=== PATIENT | male | born 1975 | race Caucasian/White ===

== ENCOUNTER 2018-05-02 06:15 | Inpatient (IN) ==
--- NOTE | 2018-05-02 07:00 | ED ---
HPI General Chief Complaint: Psychiatric Symptoms Stated Complaint: Lizabeth Leslie Time Seen by Provider: 05/02/18 06:30 Source: patient Mode of arrival: ambulatory Limitations: no limitations History of Present Illness HPI Narrative: 42-year-old white male presents emergency department on a voluntary basis for psychological evaluation. Patient states that he has a history of IV drug abuse, PTSD and depression. He states that his best friend overdosed yesterday. He also states that his family in a [address] car accident in the last few days. He states that he has lost all his family members now. He has nothing to live for. He attempted to kill himself with a drug overdose earlier today. He states that he injected a large amount of heroin and crack cocaine and attempt to kill himself. He states that he passed out and states that he was out for several hours. He reportedly was laying awkwardly on his legs. Since then he has had difficulty ambulating with his legs. He also reports that he has skin infections in his right arm and both legs. He has been spiraling out of control. He quit his job 2 weeks ago because of his substance abuse. The patient admits to depression and suicidal ideation. No homicidal ideation. He states that he does feel sick when he has had "sepsis" in the past. He has had subjective fever and chills, general malaise, nausea, upset stomach, joint pain and generalized weakness. Past medical history: Depression, PTSD, IV drug abuse, multiple drug abscess and cellulitis with sepsis Surgical history: Denies Social history: Positive tobacco, IV drug abuse. Denies alcohol. Related Data Home Medications Medication Instructions Recorded Confirmed No Known Home Medications 05/02/18 05/02/18 Allergies Allergy/AdvReac Type Severity Reaction Status Date / Time No Known Allergies Allergy Uncoded 03/16/13 09:33 Review of Systems ROS: all other systems reviewed are negative [facility] Medical History Medical History Depression (Acute) IVDU (intravenous drug user) (Acute) PTSD (post-traumatic stress disorder) (Acute) Patient denies medical problems (Acute) Surgical History Surgical History No history of previous surgery (Acute) Family History Family History Other Hypertension Social History Social History Substance History: Active Abuse Second Hand Smoke Exposure: Yes Smoking Status: Current every day smoker Tobacco Type: Cigarettes How Often Do You Have a Drink Containing Alcohol: Never Recent Travel in [facility] within the Last 8 Weeks: No Recent Out of Country Travel within the Last 8 Weeks: No Substance Abuse Detail Heroin: Substance Use Status: Active Route Used Substance Abuse: Intravenously Crack/Cocaine: Substance Use Status: Active Route Used Substance Abuse: Intravenously Immunization History Tetanus Immunization: >5 Years Exam Narrative Exam Narrative: GENERAL: Well-nourished, well-developed patient. SKIN: Warm and dry. Patient has multiple track bui. Patient has multiple superficial ulcerations and abscesses to the extremities. He has a what appears to be a superficial abscess to the right forearm. There is also open lesions to both inner lower legs. The left is greater than the right. There is some warmth, erythema and tenderness consistent with abscess and cellulitis. HEAD: Normocephalic and atraumatic. EYES: No scleral icterus. No injection or drainage. ENT: No nasal drainage noted. Mucous membranes pink. Airway patent. NECK: Supple, trachea midline. Moves head freely without obvious discomfort. CARDIOVASCULAR: Regular rate and rhythm without murmurs, gallops, or rubs. RESPIRATORY: Breath sounds equal bilaterally. No accessory muscle use. GASTROINTESTINAL: Abdomen soft, non-tender, nondistended. EXTREMITIES: No cyanosis or edema. Patient has multiple track bui, skin lesions, ulcerations and superficial abscesses from IV drug abuse. BACK: Nontender without obvious deformity. No CVA tenderness. NEURO: Patient is alert and oriented. Patient states that he feels subjectively weak in his lower legs. He is able to ambulate with an antalgic gait which I suspect is from his skin lesions. Normal speech. PSYCH: No delusions. No auditory or visual hallucinations. Course Initial Documented Vital Signs Temperature 97.7 F 05/02/18 06:18 Pulse Rate 94 H 05/02/18 06:18 Respiratory Rate 16 05/02/18 06:18 Blood Pressure 104/63 05/02/18 06:18 Pulse Oximetry 98 05/02/18 06:18 Last Documented Vital Signs Temperature 97.6 F 05/02/18 19:37 Pulse Rate 81 05/02/18 19:37 Respiratory Rate 20 05/02/18 19:37 Blood Pressure 102/69 05/02/18 19:37 Pulse Oximetry 100 05/02/18 19:37 Medical Decision Making MDM Narrative Medical decision making narrative: IV access is obtained. Patient is given clindamycin 900 mg IV. Routine laboratory tests sent for medical clearance. 0700: I received report from Madi Starkey PA-C at change of shift. Patient to be admitted for IV antibiotics for abscesses and cellulitis of his bilateral upper and lower extremities secondary to IV drug abuse. Labs pending. 1038: WBC 16.3, otherwise CBC essentially unremarkable. 1117: Potassium 3.3, otherwise CMP essentially unremarkable. Serum alcohol less than 3. Call placed for patient admission. Medical Screen Exam Complete: Yes Emergency Medical Condition: Yes Differential Diagnosis Differential Diagnosis: MDM: High Differential diagnoses: Schizophrenia, schizoaffective disorder, bipolar, anxiety, depression, adjustment reaction, mood disorder NOS, ODD, depressive disorder NOS, psychosis NOS, substance induced mood disorder, infection, electrolyte abnormality, malingering. Mental health screening discussed with the patient. Psychiatric screen ordered. Lab Data Result diagrams: 05/02/18 09:30 05/02/18 09:30 Lab Results 05/02/18 05/02/18 05/02/18 Range/Units 09:30 09:30 11:16 WBC 16.3 H (4.0-11.0) th/mm3 RBC 4.17 L (4.50-5.90) mil/mm3 Hgb 11.3 L (13.0-17.0) gm/dL Hct 34.4 L (39.0-51.0) % MCV 82.4 (80.0-100.0) fL MCH 27.0 (27.0-34.0) pg MCHC 32.8 (32.0-36.0) % RDW 15.3 (11.6-17.2) % Plt Count 308 (150-450) th/mm3 MPV 7.3 (7.0-11.0) fL Neut % (Auto) 79.9 H (16.0-70.0) % Lymph % (Auto) 11.2 (9.0-44.0) % [place] % (Auto) 7.1 (0.0-8.0) % Eos % (Auto) 1.4 (0.0-4.0) % Baso % (Auto) 0.4 (0.0-2.0) % Neut # (Auto) 13.0 H (1.8-7.7) th/mm3 Lymph # (Auto) 1.8 (1.0-4.8) th/mm3 [place] # (Auto) 1.2 H (0.0-0.9) th/mm3 Eos # (Auto) 0.2 (0.0-0.4) th/mm3 Baso # (Auto) 0.1 (0.0-0.2) th/mm3 WBC Differential . Differential Comment Auto diff final Sodium 138 (136-145) meq/L Potassium 3.3 L (3.5-5.1) meq/L Chloride 101 (98-107) meq/L Carbon Dioxide 26.6 (21.0-32.0) meq/L Anion Gap 10 (5-15) meq/L BUN 9 (7-18) mg/dL Creatinine 0.77 (0.60-1.30) mg/dL Estimated GFR Greater than 89 (>89) mL/min Random Glucose 96 (74-106) mg/dL Calcium 8.3 L (8.5-10.1) mg/dL Magnesium 2.0 (1.5-2.5) mg/dL Total Bilirubin 0.2 (0.2-1.0) mg/dL AST 14 L (15-37) U/L ALT 13 (12-78) U/L Alkaline Phosphatase 85 (45-117) U/L Total Protein 7.0 (6.4-8.2) g/dL Albumin 2.8 L (3.4-5.0) g/dL TSH 1.780 (0.358-3.740) uIU/mL Urine Opiates Screen Pos H (Neg) Ur Barbiturates Screen Neg (Neg) Ur Amphetamines Screen Neg (Neg) U Benzodiazepines Scrn Neg (Neg) Urine Cocaine Screen Pos H (Neg) U Cannabinoids Screen Neg (Neg) Serum Alcohol Less than 3 (0-5) mg/dL Imaging Data Radiologist's impression: Lower Extremity CT 05/02/18 00:00 CONCLUSION: 1. Impressive subcutaneous edema and swelling primarily laterally with a small 7 mm more cystic collection could be a small drainable abscess. It's 18.8 cm below the lateral tibial plateau. No deep muscular collections are seen. Lower Extremity CT 05/02/18 00:00 CONCLUSION: 1. Impressive soft tissue edema in the lower leg with a small collection in the medial subcutaneous tissues measuring 1.2 cm across. Its approximate 16 cm below the joint line. No deep collections within the muscle are identified Discharge Plan Discharge Disposition Patient Disposition: 30 Still Patient Discharge Condition Condition: Stable Physicians Team ED Provider: Melchor Stephens ED Midlevel Provider: Madi Benitez Primary Care Provider: UNKNOWN, Attending Provider: Wil Llamas Discharge Interventions Interventions: ED Discharge Assessment Last Done: 05/02/18 17:38 Vital Signs Last Done: 05/02/18 11:20 Status ED Status: Left Department Discharge Information Discharge Date/Time: 05/02/18 17:10
[2018-05-02] MEDS ORDERED: Clindamycin/Dextrose 900 MG/50 ML IVPB IV.SIG ONE (07:09)
[2018-05-02 10:37] LABS: Baso # (Auto) 0.1 th/mm3 (0.0-0.2); Baso % (Auto) 0.4 % (0.0-2.0); Eos # (Auto) 0.2 th/mm3 (0.0-0.4); Eos % (Auto) 1.4 % (0.0-4.0); Hematocrit 34.4 % (39.0-51.0); Hemoglobin 11.3 gm/dL (13.0-17.0); Lymph # (Auto) 1.8 th/mm3 (1.0-4.8); Lymph % (Auto) 11.2 % (9.0-44.0); Mean Corpuscular HGB Conc 32.8 % (32.0-36.0); Mean Corpuscular Volume 82.4 fL (80.0-100.0); Mean Platelet Volume 7.3 fL (7.0-11.0); Mono # (Auto) 1.2 th/mm3 (0.0-0.9); Mono % (Auto) 7.1 % (0.0-8.0); Neut % (Auto) 79.9 % (16.0-70.0); Platelet Count 308 th/mm3 (150-450); Red Blood Count 4.17 mil/mm3 (4.50-5.90); Red Cell Distribution Width 15.3 % (11.6-17.2); White Blood Count 16.3 th/mm3 (4.0-11.0)
[2018-05-02 10:57] LABS: Albumin 2.8 g/dL (3.4-5.0); Anion Gap 10 meq/L (5-15); Aspartate Aminotransferase 14 U/L (15-37); Blood Urea Nitrogen 9 mg/dL (7-18); Calcium 8.3 mg/dL (8.5-10.1); Carbon Dioxide 26.6 meq/L (21.0-32.0); Chloride 101 meq/L (98-107); Glomerular Filtration Rate Greater Than 89 mL/min (>89); Glucose,Random 96 mg/dL (74-106); Potassium 3.3 meq/L (3.5-5.1); Sodium 138 meq/L (136-145)
[2018-05-02 10:58] LABS: Alanine Aminotransferase 13 U/L (12-78)
[2018-05-02] MEDS ORDERED: Clindamycin 900 mg/NS Premix 900 MG/50 ML PIGGYBACK IV.SIG ONE (11:00)
[2018-05-02 11:08] LABS: Alkaline Phosphatase 85 U/L (45-117)
[2018-05-02] MEDS ORDERED: Acetaminophen 325 MG Tablet PO PRN (11:57)
[2018-05-02] MEDS ORDERED: Sod Chloride 0.9% Inj 1,000 ML IV.SIG SCH (12:00)
[2018-05-02] MEDS: Enoxaparin Inj 40 MG/0.4 ML Syringe SQ SCH (12:34)
[2018-05-02 12:39] LABS: Amphetamine Screen,Urine Neg (Neg); Barbiturate Screen,Urine Neg (Neg); Cannabinoid Screen,Urine Neg (Neg); Cocaine Screen,Urine Pos (Neg)
[2018-05-02 12:46] LABS: Opiate Screen,Urine Pos (Neg)
[2018-05-02] MEDS ORDERED: Vancomycin Inj 1,000 MG in Sodium Chlor 0.9% Inj 250 ML IV.SIG SCH (13:00)
[2018-05-02] MEDS ORDERED: LORazepam 1 MG Tablet PO PRN (13:03)
--- NOTE | 2018-05-02 13:26 | P.HP ---
History of Present Illness Primary Care Physician: UNKNOWN History of Present Illness: 42-year-old male with a history of IV drug use presents to the emergency room voluntarily for evaluation of suicidal ideations. During physical evaluation it is evident that he has fairly extensive cellulitis on all 4 extremities secondary to IV drug use. He is being admitted medically for treatment of these cellulitic limbs with IV antibiotics. From a psychiatric standpoint, he had a of 1 of his children at age 16 that occurred in the last 3 days. Following this the grief was too much to bear and he increased his IV drug use. He started becoming more and more attempted to use a "hot needle" in order to inject a toxin into his veins that would end his life. He realizes that it is not a rational decision and has come to [place] for help. He states he has no intention to harm himself here or to harm staff. For this reason he was not [place] acted and at this point has shown no behavior that would require a sitter. He understands he will likely be going through some level of withdrawal and we discussed a treatment regiment to help take the edge off this process. He has agreed to a psychiatric consult. He denies any nausea vomiting or diarrhea. He denies any abdominal cramps. He denies any chest pain , shortness of breath, orthopnea, dyspnea on exertion. Inpatient Certification: I certify that the inpatient services were ordered in accordance with Medicare regulations governing the order. This includes certification that hospital inpatient services are reasonable and necessary and in the case of services not specified as inpatient-only under 42 CFR 419.22(n), that they are appropriately provided as inpatient services in accordance to with the 2-midnight benchmark under 43 CFR 412.3(e) Estimated Total Length of Stay (Days): 5 Plans for Post Hospital Care: Home Review of Systems All other systems reviewed negative except as stated in HPI PMFSH - History History Provided By: Patient - Medical History Medical History: Medical History (Last Updated 05/02/18 @ 12:02 by Armida Sinha) Depression IVDU (intravenous drug user) PTSD (post-traumatic stress disorder) Patient denies medical problems - Surgical History Surgical History: Surgical History (Last Reviewed 05/02/18 @ 06:57 by JASPER Meraz) No history of previous surgery - Family History Family History: Family History (Last Updated 05/02/18 @ 13:05 by Wil Llamas MD) Other Hypertension - Tobacco History Second Hand Smoke Exposure: Yes Tobacco Use In Past 30 Days: Yes Smoking Status: Current every day smoker Tobacco Type: Cigarettes - Alcohol History How Often Do You Have a Drink Containing Alcohol: Never - Substance Use History Substance History: Active Abuse - Substance Use Type Heroin Status: Active Route Used: Intravenously Crack/Cocaine Status: Active Route Used: Intravenously - Travel History Recent Travel in the [place] Within the Last 8 Weeks: No Recent Travel Out of the Country Within the Last 8 Weeks: No - Immunization History Tetanus Immunization: Unsure Medications and Allergies Active Medications: Active Medications Acetaminophen (Tylenol) 650 mg PO Q4H PRN PRN Reason: Temp > 100.4 Enoxaparin Sodium (Lovenox Inj) 40 mg SQ Q24H [facility] Last Admin: 05/02/18 12:34 Dose: Not Given Vancomycin HCl 1,000 mg/ (Sodium Chloride) 250 mls @ 250 mls/hr IV.SIG Q24H [facility] Last Admin: 05/02/18 12:34 Dose: 250 mls/hr Lorazepam (Ativan) 1 mg PO Q6H PRN PRN Reason: Agitation or Withdrawal Morphine Sulfate (Morphine Inj) 2 mg IV.PUSH Q4H PRN PRN Reason: BREAKTHROUGH PAIN Ondansetron HCl (Zofran Inj) 4 mg IV.PUSH Q6H PRN PRN Reason: NAUSEA OR VOMITING Oxycodone/Acetaminophen (Percocet 7.5/325 Mg) 1 tab PO Q4H PRN PRN Reason: Acute Pain or Withdrawal Sennosides (Senokot) 17.2 mg PO Q12H PRN PRN Reason: Moderate Constipation Allergies Allergy/AdvReac Type Severity Reaction Status Date / Time No Known Allergies Allergy Uncoded 03/16/13 09:33 Home Medications Medication Instructions Recorded Confirmed Type No Known Home Medications 05/02/18 05/02/18 History Exam Vital signs: Vital Signs 05/02/18 06:18 05/02/18 06:41 05/02/18 11:20 Temperature 97.7 F Pulse Rate 94 H 79 Respiratory Rate 16 20 18 Blood Pressure 104/63 90/52 L Pulse Oximetry 98 99 Intake & Output 05/01/18 05/02/18 05/02/18 18:59 06:59 18:59 Intake Total 50 / 50 Balance 50 / 50 Weight 72 kg Intake: IV 50 / 50 Cleocin 900 mg/NS Premix 900 mg 50 / 50 In 50 ml @ 50 mls/hr IV.SIG ONCE ONE Rx#:[id number] Narrative: GENERAL: AAOx3, blunted affect, thin SKIN: Warm and dry, tender cellulitic track bui on bilateral lower extremities , infected track bui on upper extremities as well HEAD: Atraumatic. Normocephalic. EYES: Pupils equal, round, reactive to light. No scleral icterus. No injection or drainage. ENT: No nasal bleeding or discharge. Moist mucous membranes. Nonerythematous oropharynx. NECK: Trachea midline. No JVD. Thyroid size within normal limits. CARDIOVASCULAR: Regular rate and rhythm. 1/6 systolic ejection murmur RESPIRATORY: Clear and equal to auscultation bilaterally. No crackles, no wheezes. No accessory muscle use. GASTROINTESTINAL: Abdomen soft, non-tender, nondistended, normal active bowel sounds. Hepatic and splenic margins not palpable. MUSCULOSKELETAL: Extremities without clubbing or cyanosis. No edema. NEUROLOGICAL: Awake and alert. No obvious cranial nerve deficits. Motor grossly within normal limits. No focal deficits. Five out of 5 muscle strength in the arms and legs. Normal speech. PSYCHIATRIC: Blunted affect; insight and judgment normal. Results - Labs CBC & Chem 7: 05/02/18 09:30 05/02/18 09:30 Labs: Laboratory Results - last 24 hr 05/02/18 05/02/18 05/02/18 09:30 09:30 11:16 WBC 16.3 H RBC 4.17 L Hgb 11.3 L Hct 34.4 L MCV 82.4 MCH 27.0 MCHC 32.8 RDW 15.3 Plt Count 308 MPV 7.3 Neut % (Auto) 79.9 H Lymph % (Auto) 11.2 [place] % (Auto) 7.1 Eos % (Auto) 1.4 Baso % (Auto) 0.4 Neut # (Auto) 13.0 H Lymph # (Auto) 1.8 [place] # (Auto) 1.2 H Eos # (Auto) 0.2 Baso # (Auto) 0.1 WBC Differential . Differential Comment Auto diff final Sodium 138 Potassium 3.3 L Chloride 101 Carbon Dioxide 26.6 Anion Gap 10 BUN 9 Creatinine 0.77 Estimated GFR Greater than 89 Random Glucose 96 Calcium 8.3 L Magnesium 2.0 Total Bilirubin 0.2 AST 14 L ALT 13 Alkaline Phosphatase 85 Total Protein 7.0 Albumin 2.8 L TSH 1.780 Urine Opiates Screen Pos H Ur Barbiturates Screen Neg Ur Amphetamines Screen Neg U Benzodiazepines Scrn Neg Urine Cocaine Screen Pos H U Cannabinoids Screen Neg Serum Alcohol Less than 3 Caprini VTE Risk Assessment Caprini VTE Risk Assessment: Moderate/High Risk (score >= 2) Caprini Risk Assessment Model: Point Value = 1 Point Value = 2 Point Value = 3 Point Value = 5 Age 41-60 Minor surgery BMI > 25 kg/m2 Swollen legs Varicose veins or History of unexplained or recurrent spontaneous Oral contraceptives or hormone replacement Sepsis (< 1 month) Serious lung disease, including pneumonia (< 1 month) Abnormal pulmonary function Acute myocardial infarction Congestive heart failure (< 1 month) History of inflammatory bowel disease Medical patient at bed rest Age 61-74 Arthroscopic surgery Major open surgery (> 45 min) Laparoscopic surgery (> 45 min) Malignancy Confined to bed (> 72 hours) Immobilizing plaster cast Central venous access Age >= 75 History of VTE Family history of VTE Factor V Leiden Prothrombin [id number] Lupus anticoagulant Anticardiolipin antibodies Elevated serum homocysteine Heparin-induced thrombocytopenia Other congenital or acquired thrombophilia Stroke (< 1 month) Elective arthroplasty Hip, pelvis, or leg fracture Acute spinal cord injury (< 1 month) Prophylaxis Regimen: Total Risk Factor Score Risk Level Prophylaxis Regimen 0-1 Low Early ambulation 2 Moderate Order ONE of the following: *Sequential Compression Device (SCD) *Heparin 5000 units SQ BID 3-4 Higher Order ONE of the following medications: *Heparin 5000 units SQ TID *Enoxaparin/Lovenox 40 mg SQ daily (WT < 150 kg, CrCl > 30 mL/min) *Enoxaparin/Lovenox 30 mg SQ daily (WT < 150 kg, CrCl > 10-29 mL/min) *Enoxaparin/Lovenox 30 mg SQ BID (WT < 150 kg, CrCl > 30 mL/min) AND/OR *Sequential Compression Device (SCD) 5 or more Highest Order ONE of the following medications: *Heparin 5000 units SQ TID (Preferred with Epidurals) *Enoxaparin/Lovenox 40 mg SQ daily (WT < 150 kg, CrCl > 30 mL/min) *Enoxaparin/Lovenox 30 mg SQ daily (WT < 150 kg, CrCl > 10-29 mL/min) *Enoxaparin/Lovenox 30 mg SQ BID (WT < 150 kg, CrCl > 30 mL/min) AND *Sequential Compression Device (SCD) Assessment and Plan - Plan Adjustment disorder with suicidal ideations and depressed mood Patient had a of a 17-year-old child in the last 3 days He is not coping well, but has insight that he is not coping well His specific plan involves a "hot needle" (toxic injection), he has no access to hot needles here and therefore has no plan to kill himself here He is here voluntarily, seeking help Psychiatry consulted Cellulitis x4 extremities Bilateral legs are worse than arms CT of lower extremities ordered to rule out any deep abscesses Arms did not seem as severe as legs If tunneling abscesses exists, consult general surgery or podiatry Continue with IV vancomycin IV drug use with narcotics Percocet 7.5 mg p.o. to address pain as well as withdrawal risk Morphine 2 mg IV for breakthrough pain Blood cultures ordered to investigate endocarditis Endocarditis risk Patient denies any recurrent fevers, denies shortness of breath, denies history of endocarditis Although he is categorically high risk due to IV drug use, will wait for blood cultures to return before treating due to lack of symptoms Xanax abuse Ativan 1 mg p.o. every 6 hours for agitation or withdrawal DVT prophylaxis Lovenox
--- NOTE | 2018-05-02 14:42 | CT ---
EXAM DATE: 05/02/2018 2:24 PM EDT AGE/SEX: 42 years / Male INDICATIONS: Bilateral lower leg pain. Evaluate for abscess. CLINICAL DATA: This is the patient's initial encounter. Patient reports that signs and symptoms have been present for 1 day and indicates a pain score of 10/10. MEDICAL/SURGICAL HISTORY: . IVDU. None. RADIATION DOSE: 6.84 CTDI (mGy) ; Combined studies COMPARISON: Contralateral leg. TECHNIQUE: Multiple contiguous axial images were acquired using a multirow detector CT scanner after the intravenous administration of 70 ml Omnipaque 350 (iohexol) nonionic water-soluble contrast as a cumulative dose for multiple exams. Multiplanar reconstruction was performed in the sagittal and co franca planes. Using automated exposure control and adjustment of the mA and/or kV according to patien t size, radiation dose was kept as low as reasonably achievable to obtain optimal diagnostic quality images. DICOM format image data is available electronically for review and comparison. FINDINGS: There is subcutaneous edema in the lower leg on the left. No deep collection or drainable fluid colle ction is identified in the musculature. There is a 1.2 cm low-density fluid collection in the subcuta neous fat in the mid calf medially mass with central more cystic areas. There is no evidence of bone fracture or lytic lesion. No active periosteal reaction is identified. CONCLUSION: 1. Impressive soft tissue edema in the lower leg with a small collection in the medial subcutaneous tissues measuring 1.2 cm across. Its approximate 16 cm below the joint line. No deep collections with in the muscle are identified Electronically signed by: Lionel Elias MD 05/02/2018 2:40 PM EDT
--- NOTE | 2018-05-02 14:44 | CT ---
EXAM DATE: 05/02/2018 2:13 PM EDT AGE/SEX: 42 years / Male INDICATIONS: Bilateral lower leg pain. Evaluate for abscess. CLINICAL DATA: This is the patient's initial encounter. Patient reports that signs and symptoms have been present for 1 day and indicates a pain score of 10/10. MEDICAL/SURGICAL HISTORY: . IVDU. None. RADIATION DOSE: 6.84 CTDI (mGy) ; Combined studies COMPARISON: No prior exams available for comparison. TECHNIQUE: Multiple contiguous axial images were acquired using a multirow detector CT scanner after the intravenous administration of 70 ml Omnipaque 350 (iohexol) nonionic water-soluble contrast as a cumulative dose for multiple exams. Multiplanar reconstruction was performed in the sagittal and co franca planes. Using automated exposure control and adjustment of the mA and/or kV according to patien t size, radiation dose was kept as low as reasonably achievable to obtain optimal diagnostic quality images. DICOM format image data is available electronically for review and comparison. FINDINGS: There is impressive subcutaneous edema in the left lower leg. Within the subcutaneous fat laterally i n the mid calf there is a 7 mm more cystic collection could be a small drainable abscess. Could be an effect a sebaceous cyst. Its in the central aspect where the skin is mostly thickened. The lowest de nsity area is 18.8 cm below the lateral tibial plateau. No muscular collections are identified. The b one is unremarkable. CONCLUSION: 1. Impressive subcutaneous edema and swelling primarily laterally with a small 7 mm more cystic neena ection could be a small drainable abscess. It's 18.8 cm below the lateral tibial plateau. No deep mus cular collections are seen. Electronically signed by: Lionel Elias MD 05/02/2018 2:43 PM EDT
[2018-05-02] MEDS: Morphine Inj 4 MG/ML Vial IV.PUSH PRN ×2 (19:18→23:31)
[2018-05-03] MEDS: Morphine Inj 4 MG/ML Vial IV.PUSH PRN ×3 (04:35→13:59)
[2018-05-03] MEDS ORDERED: Vancomycin Consult Pharmacy OTHER PRN (11:31)
--- NOTE | 2018-05-03 11:34 | P.PNIM ---
Subjective Interval history: 42-year-old male with a history of IV drug use presents to the emergency room voluntarily for evaluation of suicidal ideations. During physical evaluation it is evident that he has fairly extensive cellulitis on all 4 extremities secondary to IV drug use. He is being admitted medically for treatment of these cellulitic limbs with IV antibiotics. From a psychiatric standpoint, he had a of 1 of his children at age 16 that occurred in the last 3 days. Following this the grief was too much to bear and he increased his IV drug use. He started becoming more and more attempted to use a "hot needle" in order to inject a toxin into his veins that would end his life. He realizes that it is not a rational decision and has come to [place] for help. He states he has no intention to harm himself here or to harm staff. For this reason he was not [place] acted and at this point has shown no behavior that would require a sitter. He understands he will likely be going through some level of withdrawal and we discussed a treatment regiment to help take the edge off this process. He has agreed to a psychiatric consult. He denies any nausea vomiting or diarrhea. He denies any abdominal cramps. He denies any chest pain , shortness of breath, orthopnea, dyspnea on exertion. 11-2 PATIENT COMPLAINS OF PAIN ALL OVER 10 OUT OF 10 PAIN AWAIT PSYCHIATRY INPUT SITTER AT BED DW RN AND PT AND CM STILL HAS DRAINING IN WOUNDS IN ALL EXTREMITIES Physical Exam Vital signs: Vital Signs 05/02/18 16:28 05/02/18 19:37 05/02/18 23:30 Temperature 97.6 F 98.1 F Pulse Rate 71 81 73 Respiratory Rate 18 20 16 Blood Pressure 103/62 102/69 102/65 Pulse Oximetry 97 100 99 05/03/18 04:00 05/03/18 08:00 Temperature 97.9 F 98.4 F Pulse Rate 85 81 Respiratory Rate 18 16 Blood Pressure 125/73 100/55 L Pulse Oximetry 99 98 Intake & Output 05/02/18 05/03/18 05/03/18 18:59 06:59 18:59 Intake Total 1540 / 1540 Balance 1540 / 1540 Weight 72.8 kg 72.8 kg Intake: IV 1300 / 1300 Cleocin 900 mg/NS Premix 900 mg 50 / 50 In 50 ml @ 50 mls/hr IV.SIG ONCE ONE Rx#:[id number] Vancomycin Inj 1,000 MG In NS 250 / 250 Inj 250 ML @ 250 mls/hr IV.SIG Q24H [facility] Rx#:[id number] Oral 240 / 240 Other: # Voids 3 Weight On Admission 72.8 kg Narrative: GENERAL: AAOx3, blunted affect, thin SKIN: Warm and dry, tender cellulitic track bui on bilateral lower extremities , infected track bui on upper extremities as well- SOME WITH DRAINAGE HEAD: Atraumatic. Normocephalic. EYES: Pupils equal, round, reactive to light. No scleral icterus. No injection or drainage. ENT: No nasal bleeding or discharge. Moist mucous membranes. Nonerythematous oropharynx. NECK: Trachea midline. No JVD. Thyroid size within normal limits. CARDIOVASCULAR: Regular rate and rhythm. 1/6 systolic ejection murmur RESPIRATORY: Clear and equal to auscultation bilaterally. No crackles, no wheezes. No accessory muscle use. GASTROINTESTINAL: Abdomen soft, non-tender, nondistended, normal active bowel sounds. Hepatic and splenic margins not palpable. MUSCULOSKELETAL: Extremities without clubbing or cyanosis. No edema. NEUROLOGICAL: Awake and alert. No obvious cranial nerve deficits. Motor grossly within normal limits. No focal deficits. Five out of 5 muscle strength in the arms and legs. Normal speech. PSYCHIATRIC: Blunted affect; insight and judgment normal. Results - Labs CBC & Chem 7: 05/02/18 09:30 05/02/18 09:30 Laboratory Results - last 24 hr 05/02/18 11:16 Urine Opiates Screen Pos H Ur Barbiturates Screen Neg Ur Amphetamines Screen Neg U Benzodiazepines Scrn Neg Urine Cocaine Screen Pos H U Cannabinoids Screen Neg Microbiology 05/02/18 09:30 Blood - Peripheral Aerobic Blood Culture - Preliminary No growth in 1 day 05/02/18 09:30 Blood - Peripheral Anaerobic Blood Culture - Preliminary No growth in 1 day 05/02/18 09:40 Blood - Peripheral Aerobic Blood Culture - Preliminary No growth in 1 day 05/02/18 09:40 Blood - Peripheral Anaerobic Blood Culture - Preliminary No growth in 1 day - Imaging Impressions Lower Extremity CT 05/02/18 00:00 CONCLUSION: 1. Impressive subcutaneous edema and swelling primarily laterally with a small 7 mm more cystic collection could be a small drainable abscess. It's 18.8 cm below the lateral tibial plateau. No deep muscular collections are seen. Lower Extremity CT 05/02/18 00:00 CONCLUSION: 1. Impressive soft tissue edema in the lower leg with a small collection in the medial subcutaneous tissues measuring 1.2 cm across. Its approximate 16 cm below the joint line. No deep collections within the muscle are identified Assessment and Plan - Plan Adjustment disorder with suicidal ideations and depressed mood Patient had a of a 17-year-old child in the last 3 days He is not coping well, but has insight that he is not coping well His specific plan involves a "hot needle" (toxic injection), he has no access to hot needles here and therefore has no plan to kill himself here He is here voluntarily, seeking help Psychiatry consulted Cellulitis x4 extremities Bilateral legs are worse than arms CT of lower extremities ordered to rule out any deep abscesses Arms did not seem as severe as legs If tunneling abscesses exists, consult general surgery or podiatry Continue with IV vancomycin WILL GET US OF BL UE AND LE ADD ZOSYN AND VANCO IV drug use with narcotics Percocet 7.5 mg p.o. to address pain as well as withdrawal risk Morphine 2 mg IV for breakthrough pain Blood cultures ordered to investigate endocarditis ADD CATAPRESS AND INCREASE MORPHINE TO 3MG Q3H AM LABS ADD ZOSYN AND VANCO Endocarditis risk Patient denies any recurrent fevers, denies shortness of breath, denies history of endocarditis Although he is categorically high risk due to IV drug use, will wait for blood cultures to return before treating due to lack of symptoms Xanax abuse Ativan 1 mg p.o. every 6 hours for agitation or withdrawal DVT prophylaxis Lovenox Code Status: FULL CODE Discussed Condition With: RN AND PT AND CM Discharge Planning: PENDING IMPROVEMENT OF WOUNDS AND PSYCHIATRIC CLEARANCE
[2018-05-03] MEDS ORDERED: Vancomycin Consult Pharmacy 1 EACH OTHER SCH (11:45)
[2018-05-03] MEDS: Enoxaparin Inj 40 MG/0.4 ML Syringe SQ SCH (12:40)
[2018-05-03] MEDS: Piperacil/Tazo 3.375 GM Premix 50 ML IV.SIG SCH ×2 (12:52→20:45)
--- NOTE | 2018-05-03 12:56 | US ---
EXAM DATE: 05/03/2018 12:35 PM EDT AGE/SEX: 42 years / Male INDICATIONS: Swelling. CLINICAL DATA: This is the patient's initial encounter. Patient reports that signs and symptoms have been present for 1 day and indicates a pain score of 2/10. MEDICAL/SURGICAL HISTORY: . Depression. Intravenous drug user. PTSD. None. COMPARISON: [facility], CT TIB/FIB LEFT W CONTRAST, 05/02/2018. . FINDINGS: Grayscale and Doppler ultrasound imaging was performed along the left lateral aspect of the proximal calf. In this location the subcutaneous tissues are hyperemic and there is a hypoechoic area measurin g approximately 2.0 x 4.7 x 0.9 cm. In retrospect on yesterday's CT there is abnormal subcutaneous de nsity with possible overlying skin thickening. CONCLUSION: Heterogeneous mildly hyperemic area along the left lateral proximal calf measuring 2.0 x 4.7 x 0.9 cm . Imaging features are nonspecific but this could represent an area of infection. No drainable fluid collection is present. Electronically signed by: Lei Alston MD 05/03/2018 12:55 PM EDT
--- NOTE | 2018-05-03 12:58 | US ---
EXAM DATE: 05/03/2018 12:37 PM EDT AGE/SEX: 42 years / Male INDICATIONS: Swelling. CLINICAL DATA: This is the patient's initial encounter. Patient reports that signs and symptoms have been present for 1 day and indicates a pain score of 2/10. MEDICAL/SURGICAL HISTORY: . Depression. Intravenous drug user. PTSD. None. COMPARISON: No prior exams available for comparison. FINDINGS: Grayscale and Doppler ultrasound imaging was performed of the right medial posterior mid forearm at t his location there is a hyperemic subcutaneous area that is a mildly hypoechoic and ill-defined measu ring approximately 3.9 x 0.9 x 2.1 cm. CONCLUSION: At the location of swelling along the right medial and posterior mid forearm there is subcutaneous hy peremia with poorly defined area measuring 3.9 x 0.9 x 2.1 cm. This could represent a nonspecific are a of inflammation or infection. No drainable abscess or fluid collection is present. Electronically signed by: Lei Alston MD 05/03/2018 12:57 PM EDT
--- NOTE | 2018-05-03 13:01 | US ---
EXAM DATE: 05/03/2018 12:39 PM EDT AGE/SEX: 42 years / Male INDICATIONS: Swelling. CLINICAL DATA: This is the patient's initial encounter. Patient reports that signs and symptoms have been present for 1 day and indicates a pain score of 2/10. MEDICAL/SURGICAL HISTORY: . Depression. Intravenous drug user. PTSD. . COMPARISON: No prior exams available for comparison. FINDINGS: Grayscale and Doppler ultrasound imaging was performed of the left medial and posterior mid forearm. In this location there is subcutaneous hyperemia with a subtle poorly delineated mildly hypoechoic ar ea measuring 1.9 x 2.6 x 0.8 cm. CONCLUSION: At the area of swelling in the left forearm there is subcutaneous hyperemia with a mildly hypoechoic area measuring up to 2.6 cm that could represent an area of inflammation or infection. No organized d rainable fluid collection or abscess is present. Electronically signed by: Lei Alston MD 05/03/2018 12:59 PM EDT
--- NOTE | 2018-05-03 13:03 | US ---
EXAM DATE: 05/03/2018 12:41 PM EDT AGE/SEX: 42 years / Male INDICATIONS: Swelling. CLINICAL DATA: This is the patient's initial encounter. Patient reports that signs and symptoms have been present for 1 day and indicates a pain score of 2/10. MEDICAL/SURGICAL HISTORY: . Depression. Intravenous drug user. PTSD. . COMPARISON: [place], CT TIB/FIB RIGHT W CONTRAST, 05/02/2018. . FINDINGS: Grayscale and Doppler ultrasound was performed of the right medial mid calf. In this location there i s subcutaneous hyperemia around a mildly hypoechoic area measuring 2.8 x 1.1 x 2.4 cm. This likely co rresponds to the abnormality described on yesterday's CT. CONCLUSION: There is a 2.8 cm hypoechoic area in the subcutaneous tissues with surrounding hyperemia likely repre senting an inflammatory or infectious process. However, no organized drainable fluid collection is pr esent. Electronically signed by: Lei Alston MD 05/03/2018 1:01 PM EDT
[2018-05-03] MEDS: Vancomycin Inj 1,250 MG in Sodium Chlor 0.9% Inj 250 ML IV.SIG SCH (14:23)
[2018-05-03] MEDS ORDERED: Sodium Chloride 0.9% 2 ML Flush PRN IV.FLUSH (23:58)
[2018-05-04] MEDS: Vancomycin Inj 1,250 MG in Sodium Chlor 0.9% Inj 250 ML IV.SIG SCH ×2 (01:01→13:43)
[2018-05-04] MEDS: Piperacil/Tazo 3.375 GM Premix 50 ML IV.SIG SCH ×3 (04:45→21:22)
[2018-05-04 08:25] LABS: Baso % (Auto) 0.6 % (0.0-2.0); Eos # (Auto) 0.2 th/mm3 (0.0-0.4); Eos % (Auto) 3.2 % (0.0-4.0); Hematocrit 36.6 % (39.0-51.0); Hemoglobin 12.2 gm/dL (13.0-17.0); Lymph # (Auto) 1.5 th/mm3 (1.0-4.8); Lymph % (Auto) 21.3 % (9.0-44.0); Mean Corpuscular HGB Conc 33.4 % (32.0-36.0); Mean Corpuscular Hemoglobin 27.7 pg (27.0-34.0); Mean Corpuscular Volume 82.9 fL (80.0-100.0); Mean Platelet Volume 7.2 fL (7.0-11.0); Mono # (Auto) 0.4 th/mm3 (0.0-0.9); Mono % (Auto) 6.5 % (0.0-8.0); Neut # (Auto) 4.7 th/mm3 (1.8-7.7); Neut % (Auto) 68.4 % (16.0-70.0); Platelet Count 278 th/mm3 (150-450); Red Blood Count 4.41 mil/mm3 (4.50-5.90); Red Cell Distribution Width 15.4 % (11.6-17.2); White Blood Count 6.8 th/mm3 (4.0-11.0)
[2018-05-04 09:09] LABS: Alanine Aminotransferase 13 U/L (12-78); Albumin 2.7 g/dL (3.4-5.0); Alkaline Phosphatase 77 U/L (45-117); Anion Gap 5 meq/L (5-15); Aspartate Aminotransferase 10 U/L (15-37); Blood Urea Nitrogen 5 mg/dL (7-18); Calcium 8.3 mg/dL (8.5-10.1); Carbon Dioxide 27.8 meq/L (21.0-32.0); Chloride 112 meq/L (98-107); Free T4 (Free Thyroxine) 2.11 ng/dL (0.76-1.46); Glomerular Filtration Rate Greater Than 89 mL/min (>89); Glucose,Random 85 mg/dL (74-106); Magnesium 2.3 mg/dL (1.5-2.5); Phosphorus 2.4 mg/dL (2.5-4.9); Sodium 145 meq/L (136-145); Thyroid Stimulating Hormone 0.436 uIU/mL (0.358-3.740); Total Protein 6.9 g/dL (6.4-8.2)
[2018-05-04] MEDS: Sodium Chloride 0.9% 2 ML Flush BID IV.FLUSH SCH ×2 (09:10→21:23)
--- NOTE | 2018-05-04 10:30 | P.PNIM ---
Subjective Interval history: 42-year-old male with a history of IV drug use presents to the emergency room voluntarily for evaluation of suicidal ideations. During physical evaluation it is evident that he has fairly extensive cellulitis on all 4 extremities secondary to IV drug use. He is being admitted medically for treatment of these cellulitic limbs with IV antibiotics. From a psychiatric standpoint, he had a of 1 of his children at age 16 that occurred in the last 3 days. Following this the grief was too much to bear and he increased his IV drug use. He started becoming more and more attempted to use a "hot needle" in order to inject a toxin into his veins that would end his life. He realizes that it is not a rational decision and has come to [place] for help. He states he has no intention to harm himself here or to harm staff. For this reason he was not [place] acted and at this point has shown no behavior that would require a sitter. He understands he will likely be going through some level of withdrawal and we discussed a treatment regiment to help take the edge off this process. He has agreed to a psychiatric consult. He denies any nausea vomiting or diarrhea. He denies any abdominal cramps. He denies any chest pain , shortness of breath, orthopnea, dyspnea on exertion. 11-2 PATIENT COMPLAINS OF PAIN ALL OVER 10 OUT OF 10 PAIN AWAIT PSYCHIATRY INPUT SITTER AT BED DW RN AND PT AND CM STILL HAS DRAINING IN WOUNDS IN ALL EXTREMITIES 11-3 HAS PAIN ALL OVER NONE OF THE WOUNDS ON HIS EXTREMITIES ARE BIG ENOUGH TO BE DRAINED PER US REPORTS CONTINUE ANTIBIOTICS AWAIT PSYCHIATRIC EVALUATIONS STILL HAS SITTER AT HIS BED AM LABS CONTINUE CURRENT ANTIBIOTICS Physical Exam Vital signs: Vital Signs 05/03/18 12:00 05/03/18 16:00 05/03/18 19:12 Temperature 98.2 F 98.1 F 98.2 F Pulse Rate 80 78 78 Respiratory Rate 16 20 16 Blood Pressure 111/74 103/60 129/66 Pulse Oximetry 98 97 98 05/03/18 21:00 05/03/18 23:50 05/04/18 01:34 Temperature 98.2 F Pulse Rate 56 L Respiratory Rate 16 16 16 Blood Pressure 106/58 L Pulse Oximetry 98 05/04/18 04:00 05/04/18 05:37 05/04/18 07:43 Temperature 98 F 97.5 F L Pulse Rate 59 L 59 L Respiratory Rate 17 16 16 Blood Pressure 115/70 96/58 L Pulse Oximetry 98 97 Intake & Output 05/03/18 05/04/18 05/04/18 18:59 06:59 18:59 Intake Total 2152.5 / 2152.5 362.5 / 362.5 Balance 2152.5 / 2152.5 362.5 / 362.5 Intake: IV 312.5 / 312.5 362.5 / 362.5 Zosyn 3.375 GM Premix 50 ML @ 50 / 50 100 / 100 100 mls/hr IV.SIG Q8H [facility] Rx#: [id number] Vancomycin Inj 1,250 MG In NS 262.5 / 262.5 262.5 / 262.5 Inj 250 ML @ 250 mls/hr IV.SIG Q12H [facility] Rx#:[id number] Oral 1840 / 1840 Other: # Voids 3 6 Date of Last Bowel Movement 05/03/18 Narrative: GENERAL: AAOx3, blunted affect, thin SKIN: Warm and dry, tender cellulitic track bui on bilateral lower extremities , infected track bui on upper extremities as well- SOME WITH DRAINAGE HEAD: Atraumatic. Normocephalic. EYES: Pupils equal, round, reactive to light. No scleral icterus. No injection or drainage. ENT: No nasal bleeding or discharge. Moist mucous membranes. Nonerythematous oropharynx. NECK: Trachea midline. No JVD. Thyroid size within normal limits. CARDIOVASCULAR: Regular rate and rhythm. 1/6 systolic ejection murmur RESPIRATORY: Clear and equal to auscultation bilaterally. No crackles, no wheezes. No accessory muscle use. GASTROINTESTINAL: Abdomen soft, non-tender, nondistended, normal active bowel sounds. Hepatic and splenic margins not palpable. MUSCULOSKELETAL: Extremities without clubbing or cyanosis. No edema. NEUROLOGICAL: Awake and alert. No obvious cranial nerve deficits. Motor grossly within normal limits. No focal deficits. Five out of 5 muscle strength in the arms and legs. Normal speech. PSYCHIATRIC: Blunted affect; insight and judgment normal. Results - Labs CBC & Chem 7: 05/04/18 07:08 05/04/18 07:08 Laboratory Results - last 24 hr 05/04/18 05/04/18 07:08 07:08 WBC 6.8 RBC 4.41 L Hgb 12.2 L Hct 36.6 L MCV 82.9 MCH 27.7 MCHC 33.4 RDW 15.4 Plt Count 278 MPV 7.2 Neut % (Auto) 68.4 Lymph % (Auto) 21.3 [place] % (Auto) 6.5 Eos % (Auto) 3.2 Baso % (Auto) 0.6 Neut # (Auto) 4.7 Lymph # (Auto) 1.5 [place] # (Auto) 0.4 Eos # (Auto) 0.2 Baso # (Auto) 0.0 WBC Differential . Differential Comment Auto diff final Sodium 145 Potassium 4.0 Chloride 112 H D Carbon Dioxide 27.8 Anion Gap 5 BUN 5 L Creatinine 0.68 Estimated GFR Greater than 89 Random Glucose 85 Calcium 8.3 L Phosphorus 2.4 L Magnesium 2.3 Total Bilirubin 0.3 AST 10 L ALT 13 Alkaline Phosphatase 77 Total Protein 6.9 Albumin 2.7 L TSH 0.436 Free T4 2.11 H Microbiology 05/02/18 09:30 Blood - Peripheral Aerobic Blood Culture - Preliminary No growth in 1 day 05/02/18 09:30 Blood - Peripheral Anaerobic Blood Culture - Preliminary No growth in 1 day 05/02/18 09:40 Blood - Peripheral Aerobic Blood Culture - Preliminary No growth in 1 day 05/02/18 09:40 Blood - Peripheral Anaerobic Blood Culture - Preliminary No growth in 1 day - Imaging Impressions Lower Extremity Ultrasound 05/03/18 00:00 CONCLUSION: There is a 2.8 cm hypoechoic area in the subcutaneous tissues with surrounding hyperemia likely representing an inflammatory or infectious process. However, no organized drainable fluid collection is present. Lower Extremity Ultrasound 05/03/18 00:00 CONCLUSION: Heterogeneous mildly hyperemic area along the left lateral proximal calf measuring 2.0 x 4.7 x 0.9 cm. Imaging features are nonspecific but this could represent an area of infection. No drainable fluid collection is present. Upper Extremity Ultrasound 05/03/18 00:00 CONCLUSION: At the location of swelling along the right medial and posterior mid forearm there is subcutaneous hyperemia with poorly defined area measuring 3.9 x 0.9 x 2.1 cm. This could represent a nonspecific area of inflammation or infection. No drainable abscess or fluid collection is present. Upper Extremity Ultrasound 05/03/18 00:00 CONCLUSION: At the area of swelling in the left forearm there is subcutaneous hyperemia with a mildly hypoechoic area measuring up to 2.6 cm that could represent an area of inflammation or infection. No organized drainable fluid collection or abscess is present. - Procedures NONE Assessment and Plan - Plan Adjustment disorder with suicidal ideations and depressed mood Patient had a of a 17-year-old child in the last 3 days He is not coping well, but has insight that he is not coping well His specific plan involves a "hot needle" (toxic injection), he has no access to hot needles here and therefore has no plan to kill himself here He is here voluntarily, seeking help Psychiatry consulted Cellulitis x4 extremities Bilateral legs are worse than arms CT of lower extremities ordered to rule out any deep abscesses Arms did not seem as severe as legs If tunneling abscesses exists, consult general surgery or podiatry Continue with IV vancomycin WILL GET US OF BL UE AND LE--ALL NEGATIVE FOR ANY ABSCESSES THAT CAN BE DRAINED ADD ZOSYN AND VANCO IV drug use with narcotics Percocet 7.5 mg p.o. to address pain as well as withdrawal risk Morphine 2 mg IV for breakthrough pain Blood cultures ordered to investigate endocarditis ADD CATAPRESS AND INCREASE MORPHINE TO 3MG Q3H IV AM LABS ADD ZOSYN AND VANCO Endocarditis risk Patient denies any recurrent fevers, denies shortness of breath, denies history of endocarditis Although he is categorically high risk due to IV drug use, will wait for blood cultures to return before treating due to lack of symptoms Xanax abuse Ativan 1 mg p.o. every 6 hours for agitation or withdrawal DVT prophylaxis Lovenox Code Status: FULL CODE Discussed Condition With: RN AND PT AND CM Discharge Planning: PENDING IMPROVEMENT OF WOUNDS AND PSYCHIATRIC CLEARANCE
[2018-05-04] MEDS: Enoxaparin Inj 40 MG/0.4 ML Syringe SQ SCH (12:14)
--- NOTE | 2018-05-04 13:17 | P.CONPSY ---
Provisional Diagnosis Admission Date: May 02, 2018 12:02 History of Present Illness Service: psychiatry Consult date: 05/04/18 Primary Care Provider: UNKNOWN Chief Complaint: suicide attempt History of Present Illness: This is a request for a psychiatric consult. Documentation was reviewed, case was discussed with nursing and patient was evaluated. Patient is a 42-year-old presenting to the emergency room after her recent suicide attempt yesterday. Patient attempted to overdose on a combination of heroin and cocaine. He admits to using heroin daily and recently got traumatic news where 5 days ago his mother and his 18-year-old son were killed in a car accident. Also, 2 weeks ago his best friend overdosed on heroin. Patient is pleasant but flat. He is not labile or tearful but admits to being severely depressed and feeling hopeless. He admits to passive suicidal ideation and says a plan would include overdosing again. Past psych: Denies inpatient, outpatient, suicide attempts Past medical: See chart Past Famhx: Son had bipolar disorder Past Social: Patient was employed as a packing and wrapping supervisor at [employer] but then quit secondary to depression and drug use. Patient has a history of marijuana use but began with heroin a year ago after receiving opiate medication. He uses benzodiazepines "every now and then." Denies alcohol use. Patient says he has a history of PTSD from his time in [place] and [place]. He remains connected with the [facility] - History History Provided By: Patient - Medical History Medical History: Medical History (Last Reviewed 05/04/18 @ 13:16 by Vijay Miles DO) Depression IVDU (intravenous drug user) PTSD (post-traumatic stress disorder) Patient denies medical problems - Surgical History Surgical History: Surgical History (Last Reviewed 05/04/18 @ 13:16 by Vijay Miles DO) No history of previous surgery - Family History Family History: Family History (Last Updated 05/02/18 @ 13:05 by Wil Llamas MD) Other Hypertension - Tobacco History Second Hand Smoke Exposure: Yes Tobacco Use In Past 30 Days: Yes Smoking Status: Current every day smoker Tobacco Type: Cigarettes - Alcohol History How Often Do You Have a Drink Containing Alcohol: Never - Substance Use History Substance History: Active Abuse - Substance Use Type Heroin Status: Active Route Used: Intravenously Crack/Cocaine Status: Active Route Used: Intravenously - Travel History Recent Travel in the [facility] Within the Last 8 Weeks: No Recent Travel Out of the Country Within the Last 8 Weeks: No - Immunization History Tetanus Immunization: >5 Years Medications and Allergies Active Medications: Active Medications Acetaminophen (Tylenol) 650 mg PO Q4H PRN PRN Reason: Temp > 100.4 Clonidine HCl (Catapres) 0.1 mg PO Q12HR [facility] Last Admin: 05/04/18 09:10 Dose: 0.1 mg Enoxaparin Sodium (Lovenox Inj) 40 mg SQ Q24H [facility] Last Admin: 05/04/18 12:14 Dose: 40 mg Piperacillin/Tazobactam/Dextrose (Zosyn 3.375 Gm Premix) 50 mls @ 100 mls/hr IV.SIG Q8H [facility] Last Infusion: 05/04/18 12:48 Dose: Infused Pharmacy Profile Note (Vancomycin Consult Pharmacy) 0 mls @ 0 mls/hr OTHER UNSCH [facility] Vancomycin HCl 1,250 mg/ (Sodium Chloride) 262.5 mls @ 250 mls/hr IV.SIG Q12H [facility] Last Infusion: 05/04/18 03:06 Dose: Infused Lorazepam (Ativan) 1 mg PO Q6H PRN PRN Reason: Agitation or Withdrawal Miscellaneous Information ([facility] Ordered Lab Info) 0 each OTHER ONCE ONE Stop: 05/05/18 01:46 EST Morphine Sulfate (Morphine Inj) 3 mg IV.PUSH Q3H PRN PRN Reason: BREAKTHROUGH PAIN Last Admin: 05/03/18 13:59 Dose: 3 mg Nicotine (Habitrol 14 Mg Patch.24 Hr) 1 patch T-DERMAL DAILY [facility] Last Admin: 05/04/18 09:10 Dose: 1 patch Ondansetron HCl (Zofran Inj) 4 mg IV.PUSH Q6H PRN PRN Reason: NAUSEA OR VOMITING Oxycodone/Acetaminophen (Percocet 7.5/325 Mg) 1 tab PO Q4H PRN PRN Reason: Acute Pain or Withdrawal Last Admin: 05/04/18 09:09 Dose: 1 tab Patch Removal (Remove Old Patch) 1 each T-DERMAL HS [facility] Last Admin: 05/03/18 20:48 Dose: 1 each Sennosides (Senokot) 17.2 mg PO Q12H PRN PRN Reason: Moderate Constipation Sodium Chloride (Ns Flush) 2 ml IV.FLUSH BID [facility] Last Admin: 05/04/18 09:10 Dose: Not Given Sodium Chloride (Ns Flush) 2 ml IV.FLUSH PRN PRN PRN Reason: FLUSH AFTER USING IV ACCESS Allergies Allergy/AdvReac Type Severity Reaction Status Date / Time No Known Allergies Allergy Uncoded 03/16/13 09:33 Home Medications Medication Instructions Recorded Confirmed Type No Known Home Medications 05/02/18 05/02/18 History Exam Vital signs: Vital Signs 05/03/18 16:00 05/03/18 19:12 05/03/18 21:00 Temperature 98.1 F 98.2 F Pulse Rate 78 78 Respiratory Rate 20 16 16 Blood Pressure 103/60 129/66 Pulse Oximetry 97 98 05/03/18 23:50 05/04/18 01:34 05/04/18 04:00 Temperature 98.2 F 98 F Pulse Rate 56 L 59 L Respiratory Rate 16 16 17 Blood Pressure 106/58 L 115/70 Pulse Oximetry 98 98 05/04/18 05:37 05/04/18 07:43 05/04/18 11:35 Temperature 97.5 F L 97.6 F Pulse Rate 59 L 65 Respiratory Rate 16 16 16 Blood Pressure 96/58 L 97/63 L Pulse Oximetry 97 96 Intake & Output 05/03/18 05/04/18 05/04/18 18:59 06:59 18:59 Intake Total 2152.5 / 2152.5 362.5 / 362.5 50 / 50 Balance 2152.5 / 2152.5 362.5 / 362.5 50 / 50 Intake: IV 312.5 / 312.5 362.5 / 362.5 50 / 50 Zosyn 3.375 GM Premix 50 ML @ 50 / 50 100 / 100 50 / 50 100 mls/hr IV.SIG Q8H [facility] Rx#: [id number] Vancomycin Inj 1,250 MG In NS 262.5 / 262.5 262.5 / 262.5 Inj 250 ML @ 250 mls/hr IV.SIG Q12H [facility] Rx#:[id number] Oral 1840 / 1840 Other: # Voids 3 6 Date of Last Bowel Movement 05/03/18 Mental Status Examination Appearance: Appropriate Consciousness: Alert Orientation: Person, Place, Date/Time Motor Activity: Normal gait Speech: Hesitant, Slow Language: Adequate Fund of Knowledge: Adequate Attention and Concentration: Adequate Memory: Unremarkable Mood: Sad Affect: Sad Thought Process & Associations: Intact Thought Content: Appropriate Hallucination Type: None Suicidal Ideation: Yes Suicidal Plan: Yes Suicidal Intention: No Homicidal Ideation: No Homicidal Plan: No Homicidal Intention: No Insight: Poor Judgment: Poor Assessment and Plan - Assessment (1) Adjustment disorder Code(s): F43.20 - Adjustment disorder, unspecified Status: Acute (2) Opiate dependence, continuous Code(s): F11.20 - Opioid dependence, uncomplicated Status: Acute (3) Benzodiazepine abuse Code(s): F13.10 - Sedative, hypnotic or anxiolytic abuse, uncomplicated Status : Acute - Plan Plan: I recommend admission to the psychiatric unit with one-to-one supervision. Patient says he is willing to be admitted voluntary. Justification for Continued Inpatient Stay: Patient would decompensate in a less restrictive setting
[2018-05-04 13:54] LABS: Hemoglobin A1c 5.4 % (4.3-6.0)
[2018-05-05 01:21] LABS: Alanine Aminotransferase 12 U/L (12-78); Albumin 2.5 g/dL (3.4-5.0); Alkaline Phosphatase 73 U/L (45-117); Anion Gap 5 meq/L (5-15); Aspartate Aminotransferase 13 U/L (15-37); Blood Urea Nitrogen 6 mg/dL (7-18); Calcium 8.1 mg/dL (8.5-10.1); Carbon Dioxide 28.9 meq/L (21.0-32.0); Chloride 110 meq/L (98-107); Glomerular Filtration Rate Greater Than 89 mL/min (>89); Glucose,Random 99 mg/dL (74-106); Magnesium 2.2 mg/dL (1.5-2.5); Phosphorus 4.1 mg/dL (2.5-4.9); Potassium 3.6 meq/L (3.5-5.1); Sodium 144 meq/L (136-145); Total Protein 6.5 g/dL (6.4-8.2); Vancomycin,Trough 7.3 mcg/mL (5.0-10.0)
[2018-05-05] MEDS: Vancomycin Inj 1,250 MG in Sodium Chlor 0.9% Inj 250 ML IV.SIG SCH ×3 (01:43→19:56)
[2018-05-05] MEDS ORDERED: Pharmacy Ordered Lab Info OTHER ONE (01:45)
[2018-05-05] MEDS: Piperacil/Tazo 3.375 GM Premix 50 ML IV.SIG SCH ×3 (05:04→22:27)
[2018-05-05] MEDS: Sodium Chloride 0.9% 2 ML Flush BID IV.FLUSH SCH ×2 (08:31→20:02)
[2018-05-05 09:46] LABS: Baso # (Auto) 0.1 th/mm3 (0.0-0.2); Baso % (Auto) 0.7 % (0.0-2.0); Eos # (Auto) 0.1 th/mm3 (0.0-0.4); Hematocrit 34.7 % (39.0-51.0); Hemoglobin 11.9 gm/dL (13.0-17.0); Lymph # (Auto) 1.6 th/mm3 (1.0-4.8); Lymph % (Auto) 21.3 % (9.0-44.0); Mean Corpuscular HGB Conc 34.2 % (32.0-36.0); Mean Corpuscular Volume 81.9 fL (80.0-100.0); Mean Platelet Volume 7.2 fL (7.0-11.0); Mono # (Auto) 0.4 th/mm3 (0.0-0.9); Mono % (Auto) 5.5 % (0.0-8.0); Neut # (Auto) 5.2 th/mm3 (1.8-7.7); Neut % (Auto) 70.5 % (16.0-70.0); Platelet Count 311 th/mm3 (150-450); Red Blood Count 4.24 mil/mm3 (4.50-5.90); Red Cell Distribution Width 15.1 % (11.6-17.2); White Blood Count 7.4 th/mm3 (4.0-11.0)
--- NOTE | 2018-05-05 10:29 | P.PNIM ---
Subjective Interval history: 42-year-old male with a history of IV drug use presents to the emergency room voluntarily for evaluation of suicidal ideations. During physical evaluation it is evident that he has fairly extensive cellulitis on all 4 extremities secondary to IV drug use. He is being admitted medically for treatment of these cellulitic limbs with IV antibiotics. From a psychiatric standpoint, he had a of 1 of his children at age 16 that occurred in the last 3 days. Following this the grief was too much to bear and he increased his IV drug use. He started becoming more and more attempted to use a "hot needle" in order to inject a toxin into his veins that would end his life. He realizes that it is not a rational decision and has come to [place] for help. He states he has no intention to harm himself here or to harm staff. For this reason he was not [place] acted and at this point has shown no behavior that would require a sitter. He understands he will likely be going through some level of withdrawal and we discussed a treatment regiment to help take the edge off this process. He has agreed to a psychiatric consult. He denies any nausea vomiting or diarrhea. He denies any abdominal cramps. He denies any chest pain , shortness of breath, orthopnea, dyspnea on exertion. 11-2 PATIENT COMPLAINS OF PAIN ALL OVER 10 OUT OF 10 PAIN AWAIT PSYCHIATRY INPUT SITTER AT BED DW RN AND PT AND CM STILL HAS DRAINING IN WOUNDS IN ALL EXTREMITIES 11-3 HAS PAIN ALL OVER NONE OF THE WOUNDS ON HIS EXTREMITIES ARE BIG ENOUGH TO BE DRAINED PER US REPORTS CONTINUE ANTIBIOTICS AWAIT PSYCHIATRIC EVALUATIONS STILL HAS SITTER AT HIS BED AM LABS CONTINUE CURRENT ANTIBIOTICS 05-05 SEEN BY PSYCHIATRY YESTERDAY WILL NEED TO GO TO INPATIENT HOPEFULLY SWITCH TO PO MEDS TOMORROW NO GROWTH OF CULTURES GABRIELLA HDEZ AND PATIENT AND CM AM LABS STILL HAS SITTER AT BEDSIDE Physical Exam Vital signs: Vital Signs 05/04/18 11:35 05/04/18 16:00 05/04/18 20:29 Temperature 97.6 F 98.0 F 98.4 F Pulse Rate 65 58 L 64 Respiratory Rate 16 17 18 Blood Pressure 97/63 L 112/72 114/70 Pulse Oximetry 96 100 97 05/04/18 21:20 05/04/18 23:32 05/05/18 00:33 Temperature 98.1 F Pulse Rate 60 Respiratory Rate 16 16 18 Blood Pressure 107/69 Pulse Oximetry 97 05/05/18 02:43 05/05/18 08:24 Temperature 98.1 F Pulse Rate 58 L Respiratory Rate 16 20 Blood Pressure 130/77 Pulse Oximetry 100 Intake & Output 05/04/18 05/05/18 05/05/18 19:59 06:59 18:59 Intake Total Output Total Balance Intake: IV Zosyn 3.375 GM Premix 50 ML @ 100 mls/hr IV.SIG Q8H [facility] Rx#: [id number] Vancomycin Inj 1,250 MG In NS Inj 250 ML @ 250 mls/hr IV.SIG Q12H [facility] Rx#:[id number] Output: Urine Other: # Voids Narrative: GENERAL: AAOx3, blunted affect, thin SKIN: Warm and dry, tender cellulitic track bui on bilateral lower extremities , infected track bui on upper extremities as well- SOME WITH DRAINAGE HEAD: Atraumatic. Normocephalic. EYES: Pupils equal, round, reactive to light. No scleral icterus. No injection or drainage. ENT: No nasal bleeding or discharge. Moist mucous membranes. Nonerythematous oropharynx. NECK: Trachea midline. No JVD. Thyroid size within normal limits. CARDIOVASCULAR: Regular rate and rhythm. 1/6 systolic ejection murmur RESPIRATORY: Clear and equal to auscultation bilaterally. No crackles, no wheezes. No accessory muscle use. GASTROINTESTINAL: Abdomen soft, non-tender, nondistended, normal active bowel sounds. Hepatic and splenic margins not palpable. MUSCULOSKELETAL: Extremities without clubbing or cyanosis. No edema. NEUROLOGICAL: Awake and alert. No obvious cranial nerve deficits. Motor grossly within normal limits. No focal deficits. Five out of 5 muscle strength in the arms and legs. Normal speech. PSYCHIATRIC: Blunted affect; insight and judgment normal. Results - Labs CBC & Chem 7: 05/05/18 08:15 05/05/18 01:45 EST Laboratory Results - last 24 hr 05/04/18 05/04/18 05/05/18 07:08 07:08 01:45 EST WBC RBC Hgb Hct MCV MCH MCHC RDW Plt Count MPV Neut % (Auto) Lymph % (Auto) [place] % (Auto) Eos % (Auto) Baso % (Auto) Neut # (Auto) Lymph # (Auto) [place] # (Auto) Eos # (Auto) Baso # (Auto) WBC Differential Differential Comment Sodium 144 Potassium 3.6 Chloride 110 H Carbon Dioxide 28.9 Anion Gap 5 BUN 6 L Creatinine 0.87 Estimated GFR Greater than 89 Random Glucose 99 Hemoglobin A1c 5.4 Calcium 8.1 L Phosphorus 4.1 D Magnesium 2.2 Total Bilirubin 0.1 L AST 13 L ALT 12 Alkaline Phosphatase 73 Total Protein 6.5 Albumin 2.5 L Free T4 2.20 H Vancomycin Trough 7.3 05/05/18 08:15 WBC 7.4 RBC 4.24 L Hgb 11.9 L Hct 34.7 L MCV 81.9 MCH 28.0 MCHC 34.2 RDW 15.1 Plt Count 311 MPV 7.2 Neut % (Auto) 70.5 H Lymph % (Auto) 21.3 [place] % (Auto) 5.5 Eos % (Auto) 2.0 Baso % (Auto) 0.7 Neut # (Auto) 5.2 Lymph # (Auto) 1.6 [place] # (Auto) 0.4 Eos # (Auto) 0.1 Baso # (Auto) 0.1 WBC Differential . Differential Comment Auto diff final Sodium Potassium Chloride Carbon Dioxide Anion Gap BUN Creatinine Estimated GFR Random Glucose Hemoglobin A1c Calcium Phosphorus Magnesium Total Bilirubin AST ALT Alkaline Phosphatase Total Protein Albumin Free T4 Vancomycin Trough Microbiology 05/02/18 09:30 Blood - Peripheral Aerobic Blood Culture - Preliminary No growth in 2 days 05/02/18 09:30 Blood - Peripheral Anaerobic Blood Culture - Preliminary No growth in 2 days 05/02/18 09:40 Blood - Peripheral Aerobic Blood Culture - Preliminary No growth in 2 days 05/02/18 09:40 Blood - Peripheral Anaerobic Blood Culture - Preliminary No growth in 2 days - Imaging ITS Impressions Lower Extremity CT 05/02/18 00:00 CONCLUSION: 1. Impressive subcutaneous edema and swelling primarily laterally with a small 7 mm more cystic collection could be a small drainable abscess. It's 18.8 cm below the lateral tibial plateau. No deep muscular collections are seen. Lower Extremity Ultrasound 05/03/18 00:00 CONCLUSION: There is a 2.8 cm hypoechoic area in the subcutaneous tissues with surrounding hyperemia likely representing an inflammatory or infectious process. However, no organized drainable fluid collection is present. Upper Extremity Ultrasound 05/03/18 00:00 CONCLUSION: At the area of swelling in the left forearm there is subcutaneous hyperemia with a mildly hypoechoic area measuring up to 2.6 cm that could represent an area of inflammation or infection. No organized drainable fluid collection or abscess is present. - Procedures NONE Assessment and Plan - Plan Adjustment disorder with suicidal ideations and depressed mood Patient had a of a 17-year-old child AND HIS MOTHER WILL He is not coping well, but has insight that he is not coping well His specific plan involves a "hot needle" (toxic injection), he has no access to hot needles here and therefore has no plan to kill himself here He is here voluntarily, seeking help Psychiatry consulted-- SEEN BY THEM- HE WANTS Cellulitis x4 extremities Bilateral legs are worse than arms CT of lower extremities ordered to rule out any deep abscesses Arms did not seem as severe as legs If tunneling abscesses exists, consult general surgery or podiatry Continue with IV vancomycin WILL GET US OF BL UE AND LE--ALL NEGATIVE FOR ANY ABSCESSES THAT CAN BE DRAINED ADD ZOSYN AND VANCO IV drug use with narcotics Percocet 7.5 mg p.o. to address pain as well as withdrawal risk Morphine 2 mg IV for breakthrough pain Blood cultures ordered to investigate endocarditis ADD CATAPRESS AND INCREASE MORPHINE TO 3MG Q3H IV AM LABS ADD ZOSYN AND VANCO Endocarditis risk Patient denies any recurrent fevers, denies shortness of breath, denies history of endocarditis Although he is categorically high risk due to IV drug use, will wait for blood cultures to return before treating due to lack of symptoms Xanax abuse Ativan 1 mg p.o. every 6 hours for agitation or withdrawal DVT prophylaxis Lovenox WILL GO INPATIENT PSYCHIATRY IN NEXT DAY OR SO Code Status: FULL CODE Discussed Condition With: RN AND PT AND CM AND PSYCHIATRY Discharge Planning: PENDING IMPROVEMENT OF WOUNDS AND PSYCHIATRIC CLEARANCE FOR A BED
[2018-05-05] MEDS: Enoxaparin Inj 40 MG/0.4 ML Syringe SQ SCH (13:26)
[2018-05-05] MEDS: Morphine Inj 4 MG/ML Vial IV.PUSH PRN ×2 (19:21→23:37)
[2018-05-06] MEDS ORDERED: Pharmacy Ordered Lab Info OTHER ONE (01:45)
[2018-05-06] MEDS: Vancomycin Inj 1,250 MG in Sodium Chlor 0.9% Inj 250 ML IV.SIG SCH ×3 (03:42→17:12)
[2018-05-06 04:11] LABS: Baso # (Auto) 0.1 th/mm3 (0.0-0.2); Baso % (Auto) 0.6 % (0.0-2.0); Eos # (Auto) 0.2 th/mm3 (0.0-0.4); Eos % (Auto) 2.3 % (0.0-4.0); Hematocrit 38.1 % (39.0-51.0); Hemoglobin 12.8 gm/dL (13.0-17.0); Lymph # (Auto) 2.7 th/mm3 (1.0-4.8); Lymph % (Auto) 30.5 % (9.0-44.0); Mean Corpuscular HGB Conc 33.6 % (32.0-36.0); Mean Corpuscular Hemoglobin 27.7 pg (27.0-34.0); Mean Corpuscular Volume 82.5 fL (80.0-100.0); Mono # (Auto) 0.6 th/mm3 (0.0-0.9); Mono % (Auto) 7.4 % (0.0-8.0); Neut # (Auto) 5.2 th/mm3 (1.8-7.7); Neut % (Auto) 59.2 % (16.0-70.0); Platelet Count 320 th/mm3 (150-450); Red Blood Count 4.62 mil/mm3 (4.50-5.90); Red Cell Distribution Width 15.5 % (11.6-17.2); White Blood Count 8.7 th/mm3 (4.0-11.0)
[2018-05-06 04:28] LABS: Alkaline Phosphatase 79 U/L (45-117); Total Protein 6.7 g/dL (6.4-8.2)
[2018-05-06 04:31] LABS: Alanine Aminotransferase 12 U/L (12-78); Albumin 2.6 g/dL (3.4-5.0); Anion Gap 6 meq/L (5-15); Aspartate Aminotransferase 16 U/L (15-37); Blood Urea Nitrogen 6 mg/dL (7-18); Calcium 8.3 mg/dL (8.5-10.1); Carbon Dioxide 28.9 meq/L (21.0-32.0); Chloride 109 meq/L (98-107); Glomerular Filtration Rate Greater Than 89 mL/min (>89); Glucose,Random 83 mg/dL (74-106); Magnesium 2.2 mg/dL (1.5-2.5); Phosphorus 4.6 mg/dL (2.5-4.9); Potassium 4.1 meq/L (3.5-5.1); Sodium 144 meq/L (136-145)
[2018-05-06] MEDS: Piperacil/Tazo 3.375 GM Premix 50 ML IV.SIG SCH ×3 (04:53→20:34)
--- NOTE | 2018-05-06 08:12 | P.PNIM ---
Subjective Interval history: f/u; cellulitis/ suicidal ideation in no acute distress. looks comfortable. swelling and erythema of the extremities reportedly improving. no fever. sitter at the bedside. d/w the RN at the bedside. Physical Exam Vital signs: Vital Signs 05/05/18 08:24 05/05/18 12:16 05/05/18 16:29 Temperature 98.1 F 97.9 F 98.9 F Pulse Rate 58 L 53 L 59 L Respiratory Rate 20 20 20 Blood Pressure 130/77 107/70 107/66 Pulse Oximetry 100 100 100 05/05/18 20:00 05/06/18 00:00 Temperature 98.0 F 98.4 F Pulse Rate 63 57 L Respiratory Rate 16 16 Blood Pressure 116/79 113/74 Pulse Oximetry 97 97 Intake & Output 05/05/18 05/06/18 05/06/18 18:59 06:59 18:59 Intake Total 432.5 / 432.5 362.5 / 362.5 480 / 480 Balance 432.5 / 432.5 362.5 / 362.5 480 / 480 Weight 78.4 kg Intake: IV 312.5 / 312.5 362.5 / 362.5 Zosyn 3.375 GM Premix 50 ML @ 50 / 50 50 / 50 100 mls/hr IV.SIG Q8H [facility] Rx#: [id number] Vancomycin Inj 1,250 MG In NS 262.5 / 262.5 312.5 / 312.5 Inj 250 ML @ 250 mls/hr IV.SIG Q8H [facility] Rx#:[id number] Oral 120 / 120 480 / 480 Other: # Voids 1 1 1 - Constitutional no acute distress - Routine Respiratory Exam Present: CTA bilaterally - Routine Cardiovascular Exam Present: RRR - Routine Abdominal Exam Present: soft - Routine Extremities Exam Present: edema (mild edema of the upper and lower extremities.) - Routine Skin Exam Present: erythema (of the extremities seems to be improving.) - Routine Neurological Exam Present: alert, oriented X3 Results - Labs CBC & Chem 7: 05/06/18 03:32 05/06/18 03:32 Laboratory Results - last 24 hr 05/05/18 05/06/18 05/06/18 08:15 03:32 03:32 WBC 7.4 8.7 RBC 4.24 L 4.62 Hgb 11.9 L 12.8 L Hct 34.7 L 38.1 L MCV 81.9 82.5 MCH 28.0 27.7 MCHC 34.2 33.6 RDW 15.1 15.5 Plt Count 311 320 MPV 7.2 7.0 Neut % (Auto) 70.5 H 59.2 Lymph % (Auto) 21.3 30.5 [place] % (Auto) 5.5 7.4 Eos % (Auto) 2.0 2.3 Baso % (Auto) 0.7 0.6 Neut # (Auto) 5.2 5.2 Lymph # (Auto) 1.6 2.7 [place] # (Auto) 0.4 0.6 Eos # (Auto) 0.1 0.2 Baso # (Auto) 0.1 0.1 WBC Differential . . Differential Comment Auto diff final Auto diff final Sodium Potassium Chloride Carbon Dioxide Anion Gap BUN Creatinine Estimated GFR Random Glucose Calcium Phosphorus Magnesium Total Bilirubin AST ALT Alkaline Phosphatase Total Protein Albumin Vancomycin Trough 16.1 H 05/06/18 03:32 WBC RBC Hgb Hct MCV MCH MCHC RDW Plt Count MPV Neut % (Auto) Lymph % (Auto) [place] % (Auto) Eos % (Auto) Baso % (Auto) Neut # (Auto) Lymph # (Auto) [place] # (Auto) Eos # (Auto) Baso # (Auto) WBC Differential Differential Comment Sodium 144 Potassium 4.1 Chloride 109 H Carbon Dioxide 28.9 Anion Gap 6 BUN 6 L Creatinine 0.75 Estimated GFR Greater than 89 Random Glucose 83 Calcium 8.3 L Phosphorus 4.6 Magnesium 2.2 Total Bilirubin 0.1 L AST 16 ALT 12 Alkaline Phosphatase 79 Total Protein 6.7 Albumin 2.6 L Vancomycin Trough Microbiology 05/02/18 09:30 Blood - Peripheral Aerobic Blood Culture - Preliminary No growth in 3 days 05/02/18 09:30 Blood - Peripheral Anaerobic Blood Culture - Preliminary No growth in 3 days 05/02/18 09:40 Blood - Peripheral Aerobic Blood Culture - Preliminary No growth in 3 days 05/02/18 09:40 Blood - Peripheral Anaerobic Blood Culture - Preliminary No growth in 3 days - Procedures NONE Assessment and Plan - Plan Adjustment disorder with suicidal ideations and depressed mood Patient had a of a 17-year-old child AND HIS MOTHER He is not coping well, but has insight that he is not coping well His specific plan involves a "hot needle" (toxic injection), he has no access to hot needles here and therefore has no plan to kill himself here He is here voluntarily, seeking help Psychiatry consulted-- plan for psych admission when medically is stable. Cellulitis x4 extremities Bilateral legs are worse than arms US of the extremities with no drainable fluid collection continue Vanco and Zosyn for now blood cultures negative so far. IV drug use with narcotics Percocet 7.5 mg p.o. to address pain as well as withdrawal risk Morphine 2 mg IV for breakthrough pain Blood cultures negative. continue Clonidine. Endocarditis risk Patient denies any recurrent fevers, denies shortness of breath, denies history of endocarditis Although he is categorically high risk due to IV drug use, will wait for blood cultures to return before treating due to lack of symptoms Xanax abuse Ativan 1 mg p.o. every 6 hours for agitation or withdrawal DVT prophylaxis Lovenox Discharge Planning: dc to psych- likely tomorrow if cellulitis continues to improve.
[2018-05-06] MEDS: Sodium Chloride 0.9% 2 ML Flush BID IV.FLUSH SCH ×2 (08:22→20:33)
[2018-05-06] MEDS: Morphine Inj 4 MG/ML Vial IV.PUSH PRN ×4 (09:17→21:29)
[2018-05-06] MEDS: Enoxaparin Inj 40 MG/0.4 ML Syringe SQ SCH (12:26)
[2018-05-07] MEDS: Morphine Inj 4 MG/ML Vial IV.PUSH PRN ×3 (01:40→09:44)
[2018-05-07] MEDS: Vancomycin Inj 1,250 MG in Sodium Chlor 0.9% Inj 250 ML IV.SIG SCH (01:44)
[2018-05-07] MEDS: Piperacil/Tazo 3.375 GM Premix 50 ML IV.SIG SCH (04:57)
[2018-05-07] MEDS: Sodium Chloride 0.9% 2 ML Flush BID IV.FLUSH SCH (08:44)
--- NOTE | 2018-05-07 09:31 | P.PNIM ---
Subjective Interval history: f/u; cellulitis in no acute distress. overall feeling better. no fever. no new complaints. Physical Exam Vital signs: Vital Signs 05/06/18 12:00 05/06/18 16:00 05/06/18 20:00 Temperature 98.1 F 98.4 F 98.0 F Pulse Rate 60 65 59 L Respiratory Rate 16 18 18 Blood Pressure 107/65 110/64 116/74 Pulse Oximetry 96 97 97 05/07/18 00:00 Temperature 97.5 F L Pulse Rate 50 L Respiratory Rate 18 Blood Pressure 93/53 L Pulse Oximetry 98 Intake & Output 05/06/18 05/07/18 05/07/18 18:59 06:59 18:59 Intake Total 1692.5 / 1692.5 745.0 / 745.0 Balance 1692.5 / 1692.5 745.0 / 745.0 Weight 76.1 kg Intake: IV 312.5 / 312.5 625.0 / 625.0 Zosyn 3.375 GM Premix 50 ML @ 50 / 50 100 / 100 100 mls/hr IV.SIG Q8H [facility] Rx#: [id number] Vancomycin Inj 1,250 MG In NS 262.5 / 262.5 525.0 / 525.0 Inj 250 ML @ 250 mls/hr IV.SIG Q8H [facility] Rx#:[id number] Oral 1380 / 1380 120 / 120 Other: # Voids 5 1 # Bowel Movements 1 - Constitutional no acute distress - Routine Respiratory Exam Present: CTA bilaterally - Routine Cardiovascular Exam Present: RRR - Routine Abdominal Exam Present: soft - Routine Extremities Exam Comments: no pedal edema. - Routine Skin Exam Present: erythema (erthema of the upper and lower extremities is improving.) - Routine Neurological Exam Present: alert, oriented X3 Results - Labs CBC & Chem 7: 05/06/18 03:32 05/06/18 03:32 Microbiology 05/02/18 09:30 Blood - Peripheral Aerobic Blood Culture - Preliminary No growth in 4 days 05/02/18 09:30 Blood - Peripheral Anaerobic Blood Culture - Preliminary No growth in 4 days 05/02/18 09:40 Blood - Peripheral Aerobic Blood Culture - Preliminary No growth in 4 days 05/02/18 09:40 Blood - Peripheral Anaerobic Blood Culture - Preliminary No growth in 4 days - Procedures NONE Assessment and Plan - Plan Adjustment disorder with suicidal ideations and depressed mood Patient had a of a 17-year-old child AND HIS MOTHER He is not coping well, but has insight that he is not coping well His specific plan involves a "hot needle" (toxic injection), he has no access to hot needles here and therefore has no plan to kill himself here He is here voluntarily, seeking help Psychiatry consulted-- plan for psych admission when medically is stable. Cellulitis x4 extremities- improving. US of the extremities with no drainable fluid collection blood cultures negative so far. will change to oral antibiotics; keflex + Doxycycline IV drug use with narcotics Percocet 7.5 mg p.o. to address pain as well as withdrawal risk Morphine 2 mg IV for breakthrough pain Blood cultures negative. continue Clonidine. Xanax abuse Ativan 1 mg p.o. every 6 hours for agitation or withdrawal DVT prophylaxis Lovenox Discharge Planning: dc to psych-today. see med list. f/u; pcp and psych. d/w the patient.
--- NOTE | 2018-05-07 09:38 | P.DS ---
Date of admission: 05/02/18 12:02 Primary care physician: UNKNOWN Brief History from admission: 42-year-old male with a history of IV drug use presents to the emergency room voluntarily for evaluation of suicidal ideations. During physical evaluation it is evident that he has fairly extensive cellulitis on all 4 extremities secondary to IV drug use. He is being admitted medically for treatment of these cellulitic limbs with IV antibiotics. From a psychiatric standpoint, he had a of 1 of his children at age 16 that occurred in the last 3 days. Following this the grief was too much to bear and he increased his IV drug use. He started becoming more and more attempted to use a "hot needle" in order to inject a toxin into his veins that would end his life. He realizes that it is not a rational decision and has come to [place] for help. He states he has no intention to harm himself here or to harm staff. For this reason he was not [place] acted and at this point has shown no behavior that would require a sitter. He understands he will likely be going through some level of withdrawal and we discussed a treatment regiment to help take the edge off this process. He has agreed to a psychiatric consult. He denies any nausea vomiting or diarrhea. He denies any abdominal cramps. He denies any chest pain , shortness of breath, orthopnea, dyspnea on exertion. DS: Medications - Discharge Medications Prescriptions: cephalexin [Keflex] 500 mg PO QID 7 Days #28 cap doxycycline hyclate 100 mg PO BID 7 Days #14 cap DS: Summary Hospital Course: Adjustment disorder with suicidal ideations and depressed mood Patient had a of a 17-year-old child AND HIS MOTHER He is not coping well, but has insight that he is not coping well His specific plan involves a "hot needle" (toxic injection), he has no access to hot needles here and therefore has no plan to kill himself here He is here voluntarily, seeking help Psychiatry consulted-- plan for psych admission when medically is stable. Cellulitis x4 extremities- improving. US of the extremities with no drainable fluid collection blood cultures negative so far. will change to oral antibiotics; keflex + Doxycycline IV drug use with narcotics Percocet 7.5 mg p.o. to address pain as well as withdrawal risk Morphine 2 mg IV for breakthrough pain Blood cultures negative. continue Clonidine. - Time Spent with Patient Total time spent providing and/or coordinating discharge services: Less than 30 minutes - Quality: VTE Deep Vein Thrombosis/Pulmonary Embolism Present on Admission: No Exam Vital signs: Vital Signs 05/06/18 12:00 05/06/18 16:00 05/06/18 20:00 Temperature 98.1 F 98.4 F 98.0 F Pulse Rate 60 65 59 L Respiratory Rate 16 18 18 Blood Pressure 107/65 110/64 116/74 Pulse Oximetry 96 97 97 05/07/18 00:00 Temperature 97.5 F L Pulse Rate 50 L Respiratory Rate 18 Blood Pressure 93/53 L Pulse Oximetry 98 Intake & Output 05/06/18 05/07/18 05/07/18 18:59 06:59 18:59 Intake Total 1692.5 / 1692.5 745.0 / 745.0 Balance 1692.5 / 1692.5 745.0 / 745.0 Weight 76.1 kg Intake: IV 312.5 / 312.5 625.0 / 625.0 Zosyn 3.375 GM Premix 50 ML @ 50 / 50 100 / 100 100 mls/hr IV.SIG Q8H RAFAELA Rx#: [id number] Vancomycin Inj 1,250 MG In NS 262.5 / 262.5 525.0 / 525.0 Inj 250 ML @ 250 mls/hr IV.SIG Q8H RAFAELA Rx#:[id number] Oral 1380 / 1380 120 / 120 Other: # Voids 5 1 # Bowel Movements 1 - Constitutional no acute distress - Routine Respiratory Exam Present: CTA bilaterally - Routine Cardiovascular Exam Present: RRR - Routine Abdominal Exam Present: soft - Routine Extremities Exam Comments: no pedal edema. - Routine Skin Exam Present: erythema (of the extremities is improving.) - Routine Neurological Exam Present: alert, oriented X3 Results Procedures completed during hospitalization: NONE Labs on day of discharge: Preliminary micro results at discharge 05/02/18 09:30 Aerobic Blood Culture - Preliminary Blood - Peripheral No growth in 4 days Anaerobic Blood Culture - Preliminary No growth in 4 days 05/02/18 09:40 Aerobic Blood Culture - Preliminary Blood - Peripheral No growth in 4 days Anaerobic Blood Culture - Preliminary No growth in 4 days - Impressions ITS Impressions Lower Extremity CT 05/02/18 00:00 CONCLUSION: 1. Impressive subcutaneous edema and swelling primarily laterally with a small 7 mm more cystic collection could be a small drainable abscess. It's 18.8 cm below the lateral tibial plateau. No deep muscular collections are seen. Lower Extremity Ultrasound 05/03/18 00:00 CONCLUSION: There is a 2.8 cm hypoechoic area in the subcutaneous tissues with surrounding hyperemia likely representing an inflammatory or infectious process. However, no organized drainable fluid collection is present. Upper Extremity Ultrasound 05/03/18 00:00 CONCLUSION: At the area of swelling in the left forearm there is subcutaneous hyperemia with a mildly hypoechoic area measuring up to 2.6 cm that could represent an area of inflammation or infection. No organized drainable fluid collection or abscess is present. Discharge Plan - Discharge Disposition Patient Disposition: [facility] Disc To [facility] - Discharge Condition Condition: Stable - Discharge Order Discharge Orders: Discharge Order (Routine); Ordered 05/07/18 Ordered By: Darrell Dahl - Physicians Team Primary Care Provider: UNKNOWN, Attending Provider: Darrell Dahl Other Providers: Molina Jackson MD
[2018-05-08] MEDS ORDERED: Pharmacy Ordered Lab Info OTHER ONE (01:45)
== END 2018-05-07 12:01 ==
LOC: NEPD 06:15 → NEDA 12:02 → NEPFCDU 16:51 → N07 05-05 16:57
PROVIDERS: ADMIT Internal Medicine; ATTEND Internal Medicine

== ENCOUNTER 2018-05-07 11:55 | Inpatient (IN) ==
[2018-05-07] MEDS ORDERED: Bisacodyl 10 MG Supp RECTAL PRN (13:17)
[2018-05-07] MEDS ORDERED: Aluminum/Magnesium/Simethacone Susp 30 ML UDC PO PRN (13:17)
[2018-05-07] MEDS: Ibuprofen 600 MG Tablet PO PRN (18:47)
[2018-05-07] MEDS: Senna/Docusate Sodium 8.6/50 MG Tablet PO SCH (20:53)
[2018-05-08] MEDS: Senna/Docusate Sodium 8.6/50 MG Tablet PO SCH (08:45)
--- NOTE | 2018-05-08 10:58 | P.HPPSY ---
Provisional Diagnosis Admission Date: May 07, 2018 12:00 [place].: 1. Adjustment disorder with mixed disturbance of emotions and conduct Rule out underlying depressive episode 2. Polysubstance Dependence, including opioids, heroin and benzodiazepines 3. Reported history of PTSD [place] II.: 1. Antisocial personality traits Competence Certification of Person's Competence To Provide Express and Informed Consent I have personally examined Justin Sorenson JR, a person being served at [facility] on, May 08, 2018 1058. Express and informed consent means consent voluntarily given in writing, by a competent person, after sufficient explanation and disclosure of the subject matter involved to enable the person to make a knowing and willful decision without any element of force, fraud, deceit, duress, or other form of constraint or coercion. This person is 18 years of age or older, is not now known to be incompetent to consent to treatment with a guardian advocate, and does not have a health care surrogate or proxy currently making medical treatment decisions. I have found this person to be one of the following: [X] Competent to provide express and informed consent, as defined above, for voluntary admission to this facility and is competent to provide express and informed consent for treatment. He/she has the consistent capacity to make well reasoned, willful, and knowing decisions concerning his or her medical or mental health treatment. The person fully and consistently understands the purpose of the admission for examination/placement and is fully capable of personally exercising all rights assured [place] Incompetent to provide express and informed consent to voluntary admission, and this is incompetent to provide express and informed consent to treatment. The person must be transferred to involuntary status and a petition for a guardian advocate filed with the Circuit Court. [] Refusing to provide express and informed consent to voluntary admission but is competent to provide express and informed consent for treatment. The person must be discharged or transferred to involuntary status. Form shall be completed within 24 hours of a person's arrival at the receiving facility and filed in the clinical record of each person: 1. Admitted on a voluntary basis 2. Permitted to provide express and informed consent to his/her own treatment 3. Allowed to transfer from involuntary to voluntary status 4. Prior to permitting a person to consent to his or her own treatment after having been previously found incompetent to consent to treatment. History of Present Illness Capacity: Has capacity Chief Complaint: Suicide attempt History of Present Illness: Mr. Sorenson is a 42 year-old male with a reported history of PTSD who presents in transfer from the medical floor. He is presently admitted on a voluntary basis and has completed a right of release set to this afternoon. Reviewing the records from the medical floor, I note that the patient was admitted with cellulitis of his extremities related to his history of IVDU and reported that he had made a suicidal overdose on heroin and cocaine prior to admission. He was seen in psychiatric consultation by Dr. Miles, who recommended psychiatric admission once medically stabilized. Reviewing the electronic medical record, I see no previous psychiatric contact within our system. Patient seen and examined with nurse. Chart reviewed. Case discussed with nursing staff. On my examination today, patient presents as somewhat irritable and dysphoric. Antisocial personality traits are noted, although it is not clear to what degree these reflect underlying personality style or reflect a manifestation of his current distress. He continues to say that presenting overdose was suicidal in nature and cites recent loss of mother and son in MVA as significant stressors. He does admit to feeling depressed still but adamantly denies any suicidal ideation, intent or plan at this time. He says that he is "tired of the lifestyle" of substance use and wants to get clean. He is agreeable to going from this facility directly to a chem dep treatment program if this can be arranged. However, he is insistent that he will derive no benefit from hospitalization on the general psychiatric unit, and so he hopes to make his stay here as brief as possible. He is willing to rescind the right of release to facilitate placement in chem dep program. He has no hypomanic or manic symptoms. He denies any audiovisual hallucinations. I can elicit no delusional material. He does report a history of PTSD and says that he is troubled by nightmares from time to time, but he describes no other symptoms related to PTSD. The remainder of the psychiatric ROS is negative. Patient does complain of some opiate withdrawal symptoms including some myalgias. No other physical complaints. Past psychiatric history: Patient reports a history of substance use issues. He also reports a history of PTSD. He denies any history of inpatient or outpatient psychiatric treatment. He denies any history of suicide attempts. Family history: The patient reports that his son had bipolar disorder. He denies any family history of suicide. He reports an extensive family history of substance use issues, mostly alcohol. Chemical dependency history: The patient reports that he has been using heroin, approximately 2 g a day. He also has a history of abuse of Suboxone in the past. He has also been selling opiates by his report. He also has been abusing cocaine and has used benzodiazepines in the past. His longest sober time is 2 months, which he achieved without clinical assistance by his report. Social history: The patient is from his , noting that she left him when he began using substances. His son recently in a motor vehicle accident as noted above. He is estranged from his daughter. He has some college education. He is disabled. He served in the [employer] for 8 years and saw combat in [place]. He does have a history of having been briefly jailed in the past but denies any other legal history. When asked if he has access to firearms, patient replies that he does "of course" have access as a consequence of his participation in the drug trade. He is somewhat evasive on specifics. He denies ever having had a suicide plan involving a firearm, noting that he is averse to any sort of pain. He is a [employer]. - Inpatient Certification I certify that the inpatient services were ordered in accordance with Medicare regulations governing the order. This includes certification that hospital inpatient services are reasonable and necessary and in the case of services not specified as inpatient-only under 42 CFR 419.22(n), that they are appropriately provided as inpatient services in accordance to with the 2-midnight benchmark under 43 CFR 412.3(e) I certify that inpatient psychiatric hospital services are medically necessary. Evaluation and treatment and/or diagnostic testing are expected to improve the patient's condition. The patient needs on a daily basis, active treatment furnished directly by or requiring the supervision of inpatient psychiatric facility personnel. Estimated Total Length of Stay (Days): 5 (3-5) Plans for Post Hospital Care: Not yet determined Review of Systems All other systems reviewed negative except as stated in HPI [facility] - History History Provided By: Patient - Medical History Medical History: Medical History (Last Reviewed 05/04/18 @ 13:16 by Vijay Miles DO) Depression IVDU (intravenous drug user) PTSD (post-traumatic stress disorder) Patient denies medical problems - Surgical History Surgical History: Surgical History (Last Reviewed 05/04/18 @ 13:16 by Vijay Miles DO) No history of previous surgery - Family History Family History: Family History (Last Updated 05/02/18 @ 13:05 by Wil Llamas MD) Other Hypertension - Tobacco History Second Hand Smoke Exposure: Yes Tobacco Use In Past 30 Days: Yes Smoking Status: Current every day smoker Tobacco Type: Cigarettes - Alcohol History How Often Do You Have a Drink Containing Alcohol: Never - Substance Use History Substance History: Active Abuse - Substance Use Type Crack/Cocaine Status: Active Route Used: Inhalation Frequency: "When I can get it" Reason for Use: Get High Heroin Status: Active Route Used: Intravenously Frequency: "Every other day" Reason for Use: Get High - Travel History Recent Travel in the [place] Within the Last 8 Weeks: No Recent Travel Out of the Country Within the Last 8 Weeks: No - Immunization History Tetanus Immunization: Unsure Hx Influenza Vaccine This Season: No Quality Measures - Patient Strengths Patient's strengths (minimum of 2): In a monitored setting. Verbally fluent. Medications and Allergies Active Medications: Active Medications Al Hydrox/Mg Hydrox/Simethicone (Mag-Al Plus Susp Liq) 30 ml PO Q6H PRN PRN Reason: DYSPEPSIA Al Hydroxide/Mg Hydroxide (Milk Of Magnesia Liq) 30 ml PO Q12H PRN PRN Reason: Mild Constipation Bisacodyl (Dulcolax Supp) 10 mg RECTAL DAILY PRN PRN Reason: SEVERE CONSITIPATION Diphenhydramine HCl (Benadryl) 50 mg PO HS PRN PRN Reason: INSOMNIA Hydroxyzine HCl (Atarax) 50 mg PO Q6H PRN PRN Reason: ANXIETY Ibuprofen (Motrin) 600 mg PO Q8H PRN PRN Reason: PAIN 1-10 Last Admin: 05/07/18 18:47 Dose: 600 mg Lactulose (Lactulose Liq) 30 ml PO DAILY PRN PRN Reason: SEVERE CONSITIPATION Nicotine (Habitrol 21 Mg Patch.24 Hr) 1 patch T-DERMAL DAILY [facility] Last Admin: 05/08/18 08:44 Dose: 1 patch Patch Removal (Remove Old Patch) 0 each T-DERMAL DAILY RAFAELA Last Admin: 05/08/18 08:46 Dose: 1 each Senna/Docusate Sodium (Janis-Colace) 1 tab PO BID RAFAELA Last Admin: 05/08/18 08:45 Dose: Not Given Sennosides (Senokot) 17.2 mg PO Q12H PRN PRN Reason: Moderate Constipation Allergies Allergy/AdvReac Type Severity Reaction Status Date / Time No Known Allergies Allergy Uncoded 03/16/13 09:33 Home Medications Medication Instructions Recorded Confirmed Type No Known Home Medications 05/02/18 05/02/18 History Results - Labs CBC & Chem 7: 05/08/18 10:30 Labs: Laboratory Tests 05/02/18 05/02/18 05/04/18 09:30 11:16 07:08 WBC Hgb Plt Count Sodium Potassium Chloride Carbon Dioxide BUN Creatinine Estimated GFR Random Glucose AST ALT Alkaline Phosphatase TSH 0.436 Urine Opiates Screen Pos H Urine Cocaine Screen Pos H Serum Alcohol Less than 3 05/06/18 05/06/18 05/08/18 03:32 03:32 10:30 WBC 8.7 Hgb 12.8 L Plt Count 320 Sodium 142 Potassium 4.6 Chloride 109 H Carbon Dioxide 25.8 BUN 7 Creatinine 0.75 Estimated GFR Greater than 89 Random Glucose 69 L AST 16 ALT 12 Alkaline Phosphatase 79 TSH Urine Opiates Screen Urine Cocaine Screen Serum Alcohol Labs reviewed. Exam Vital signs: Vital Signs 05/07/18 13:35 05/07/18 17:14 05/07/18 20:51 Temperature 98.4 F 98.2 F Pulse Rate 62 61 Respiratory Rate 16 17 5 L Blood Pressure 110/70 104/64 Pulse Oximetry 100 100 05/08/18 06:02 Temperature 98 F Pulse Rate 55 L Respiratory Rate 15 Blood Pressure 123/57 L Pulse Oximetry Intake & Output 05/07/18 05/08/18 05/08/18 18:59 06:59 18:59 Intake Total 240 / 240 Balance 240 / 240 Intake: Oral 240 / 240 Other: Date of Last Bowel Movement 05/07/18 Narrative: Physical exam completed by hospitalist on medical floor. On my examination today, the patient appears to be in no acute physical distress. No piloerection , no lacrimation, no rhinorrhea noted. No other signs of opiate withdrawal noted. Patient does have subjective complaints of opiate withdrawal. No signs of GABAergic withdrawal noted. No motor abnormalities noted. Labs and vital signs reviewed. Mental Status Examination Appearance: Appropriate Consciousness: Alert Orientation: x4 Motor Activity: Normal gait Speech: Unremarkable Language: Adequate Fund of Knowledge: Adequate Attention and Concentration: Adequate Memory: Unremarkable (Grossly intact on clinical exam) Mood: Irritable Affect: Irritable, Other (Dysphoric) Thought Process & Associations: Intact, Logical, Linear Thought Content: Appropriate Hallucination Type: None Delusion Type: None Suicidal Ideation: No Suicidal Plan: No Suicidal Intention: No Homicidal Ideation: No Homicidal Plan: No Homicidal Intention: No Insight: Fair Judgment: Impulsive Assessment and Plan - Assessment (1) Adjustment disorder with mixed disturbance of emotions and conduct Code(s): F43.25 - Adjustment disorder with mixed disturbance of emotions and conduct Status: Acute (2) Polysubstance dependence Code(s): F19.20 - Other psychoactive substance dependence, uncomplicated Status: Acute - Plan Plan: 42-year-old male with psychiatric history as detailed above who presents in transfer from the medical floor on a voluntary basis. Patient reports that presenting overdose was suicidal in nature but denies ongoing suicidal ideation , intent or plan now. He does endorse some ongoing dysphoria, and there may be some degree of underlying depressive diathesis. He also has significant substance use issues, and there may be some degree of underlying posttraumatic stress disorder. Antisocial personality traits are noted, and these may mediate chronic suicide risk to the extent that they are reflective of his underlying personality style. The patient is desirous of chemical dependency treatment and does not feel that hospitalization on the general inpatient psychiatric unit will be beneficial for him. I tend to concur that patient's substance use is his greatest modifiable risk factor for ongoing self-harm, and so I have instructed the environmental emergencies planner to begin working swiftly on arranging for transfer to a chemical dependency treatment facility. In the meantime, we will retain the patient on the inpatient psychiatric unit for safety, observation and stabilization. Admit inpatient. Voluntary status. Patient has agreed to rescind right of release. To target patient's dysphoria I will initiate Paxil 10 mg daily with plans to titrate to effect. This may also prove beneficial for patient's posttraumatic stress symptoms. We did discuss a possible trial of prazosin but will hold off for now. Atarax as needed for anxiety. Trazodone at bedtime for sleep. R/B/A for medications discussed with patient. Symptomatic treatment of patient's opiate withdrawal with baclofen, clonidine as needed, Zofran, Imodium and analgesic. CIWA scale with Ativan for the management of any GABAergic withdrawal. I will continue doxycycline and Keflex as recommended by the hospitalist from the medical floor and will request hospitalist consultation to continue to follow the patient on the inpatient psychiatric unit. Vitals every shift. Counselor to see. Disposition planning. Estimated length of stay: 3-5 days. Justification for Continued Inpatient Stay: See above. Discharge Planning: Possible transfer to chemical dependency treatment program. Request Healthcare Surrogate/Guardian Advocate?: No
[2018-05-08] MEDS ORDERED: Haloperidol Inj 5 MG/ML Ampul IV.PUSH PRN (11:09)
[2018-05-08 11:37] LABS: HDL Cholesterol 36.7 mg/dL (40.0-60.0)
[2018-05-08 11:39] LABS: Anion Gap 7 meq/L (5-15); Blood Urea Nitrogen 7 mg/dL (7-18); Calcium 9.1 mg/dL (8.5-10.1); Carbon Dioxide 25.8 meq/L (21.0-32.0); Chloride 109 meq/L (98-107); Chol/HDL Ratio 4.03 Ratio; Cholesterol 148 mg/dL (120-200); Glomerular Filtration Rate Greater Than 89 mL/min (>89); Glucose,Random 69 mg/dL (74-106); LDL Cholesterol,Calculated 75 mg/dL (0-99); Potassium 4.6 meq/L (3.5-5.1); Sodium 142 meq/L (136-145); Triglycerides 184 mg/dL (42-150)
[2018-05-08] MEDS: Loperamide 2 MG Capsule PO PRN (13:18)
[2018-05-08] MEDS: Baclofen 10 MG Tablet PO SCH ×3 (13:18→21:09)
[2018-05-08] MEDS: Ibuprofen 600 MG Tablet PO PRN (13:18)
[2018-05-08] MEDS: LORazepam 1 MG Tablet PO PRN ×3 (13:19→22:17)
--- NOTE | 2018-05-08 16:56 | P.CON ---
History of Present Illness Service: Hospitalist Consult date: 05/08/18 Requesting Physician: Frederick Villarreal Reason for Consult: Assist with ongoing medical management Primary Care Provider: UNKNOWN History of Present Illness: This is a 42yo male with a PMHX significant for IV drug use who presented initially to the [place] ED voluntarily with complaints of suicidal ideations. He was found to have extensive cellulitis on all 4 extremities secondary to IV drug use. The patient recently suffered the loss of his 17 year old child and his mother and in an effort to cope with his grief increased his IV drug use. Patient was admitted and started on IV antibiotics. US of the extremities did not show any drainable fluid collection. Blood cultures failed to show any growth in 5 days. Patient was transitioned from IV to oral Keflex and Doxycycline. Patient was seen in consultation by Psychiatry and has since been admitted to inpatient psychiatric unit. Hospitalist services have been consulted to assist with ongoing medical management. Patient reports the infection is improving with less pain, swelling and drainage. He complains of fever and chills. He says he just had his first panic attack. He denies any nausea, vomiting or abdominal pain. He complains of uncontrollable shaking. Review of Systems All other systems reviewed negative except as stated in HPI PMFSH - History History Provided By: Patient - Medical History Medical History: Medical History (Last Reviewed 05/08/18 @ 16:32 by Lori Vigil) Depression IVDU (intravenous drug user) PTSD (post-traumatic stress disorder) Patient denies medical problems - Surgical History Surgical History: Surgical History (Last Reviewed 05/08/18 @ 16:32 by Lori Vigil) No history of previous surgery - Family History Family History: Family History (Last Reviewed 05/08/18 @ 16:32 by Lori Vigil) Other Hypertension - Social History I have reviewed the patient's Social History: Yes - Tobacco History Second Hand Smoke Exposure: Yes Tobacco Use In Past 30 Days: Yes Smoking Status: Current every day smoker Tobacco Type: Cigarettes - Alcohol History How Often Do You Have a Drink Containing Alcohol: Never - Substance Use History Substance History: Active Abuse - Substance Use Type Crack/Cocaine Status: Active Route Used: Inhalation Frequency: "When I can get it" Reason for Use: Get High Heroin Status: Active Route Used: Intravenously Frequency: "Every other day" Reason for Use: Get High Comment: Patient has not used in 1 week, uses to feel good. - Travel History Recent Travel in the [place] Within the Last 8 Weeks: No Recent Travel Out of the Country Within the Last 8 Weeks: No - Immunization History Tetanus Immunization: Unsure Hx Influenza Vaccine This Season: No Medications and Allergies Active Medications: Active Medications Al Hydrox/Mg Hydrox/Simethicone (Mag-Al Plus Susp Liq) 30 ml PO Q6H PRN PRN Reason: DYSPEPSIA Al Hydroxide/Mg Hydroxide (Milk Of Magnesia Liq) 30 ml PO Q12H PRN PRN Reason: Mild Constipation Baclofen (Lioresal) 10 mg PO QID [facility] Last Admin: 05/08/18 13:18 Dose: 10 mg Cephalexin Monohydrate (Keflex) 500 mg PO QID [facility] Last Admin: 05/08/18 13:19 Dose: 500 mg Clonidine HCl (Catapres) 0.1 mg PO Q8HR PRN PRN Reason: Opiate withdrawal Doxycycline Hyclate (Vibramycin) 100 mg PO BID [facility] Flumazenil (Romazecon Inj) 0.2 mg IV.PUSH Q1M PRN PRN Reason: OVERSEDATION Folic Acid (Folic Acid) 1 mg PO DAILY [facility] Stop: 05/14/18 08:59 Haloperidol Lactate (Haldol Inj) 1 mg IV.PUSH Q15M PRN PRN Reason: for severe agitation Hydroxyzine HCl (Atarax) 50 mg PO Q6H PRN PRN Reason: ANXIETY Ibuprofen (Motrin) 600 mg PO Q8H PRN PRN Reason: PAIN 1-10 Last Admin: 05/08/18 13:18 Dose: 600 mg Loperamide HCl (Imodium) 2 mg PO Q4H PRN PRN Reason: DIARRHEA Last Admin: 05/08/18 13:18 Dose: 2 mg Lorazepam (Ativan) 1 mg PO Q4H PRN PRN Reason: for CIWA 8-10 Last Admin: 05/08/18 13:19 Dose: 1 mg Lorazepam (Ativan) 2 mg PO Q2H PRN PRN Reason: for CIWA 11-14 Lorazepam (Ativan Inj) 2 mg IV.PUSH Q2H PRN PRN Reason: for CIWA 11-14 Lorazepam (Ativan Inj) 2 mg IV.PUSH Q1H PRN PRN Reason: for CIWA 15-20 Lorazepam (Ativan Inj) 2 mg IV.PUSH Q15M PRN PRN Reason: for CIWA > 20 Lorazepam (Ativan Inj) 1 mg IV.PUSH Q4H PRN PRN Reason: for CIWA 8-10 Multivitamins/Minerals (Theragran-M) 1 tab PO DAILY [facility] Stop: 05/14/18 08:59 Nicotine (Habitrol 21 Mg Patch.24 Hr) 1 patch T-DERMAL DAILY [facility] Last Admin: 05/08/18 08:44 Dose: 1 patch Ondansetron HCl (Zofran Odt) 4 mg PO Q6H PRN PRN Reason: Nausea/vomiting Paroxetine HCl (Paxil) 10 mg PO DAILY [facility] Last Admin: 05/08/18 13:18 Dose: 10 mg Patch Removal (Remove Old Patch) 0 each T-DERMAL DAILY [facility] Last Admin: 05/08/18 08:46 Dose: 1 each Thiamine HCl (Vitamin B1) 100 mg PO DAILY [facility] Trazodone HCl (Desyrel) 50 mg PO [facility] Allergies Allergy/AdvReac Type Severity Reaction Status Date / Time No Known Allergies Allergy Uncoded 03/16/13 09:33 Home Medications Medication Instructions Recorded Confirmed Type No Known Home Medications 05/02/18 05/02/18 History Physical Exam Vital signs: Vital Signs 05/07/18 17:14 05/07/18 20:51 05/08/18 06:02 Temperature 98.2 F 98 F Pulse Rate 61 55 L Respiratory Rate 17 5 L 15 Blood Pressure 104/64 123/57 L Pulse Oximetry 100 Intake & Output 05/07/18 05/08/18 05/08/18 18:59 06:59 18:59 Intake Total 480 / 480 Balance 480 / 480 Intake: Oral 480 / 480 Other: Date of Last Bowel Movement 05/07/18 Narrative: GENERAL: Thin, ill appearing middle aged male patient who appears older than stated age. Awake and alert. Slightly tremulous. SKIN: Warm and sweaty. +areas of cellulitic track bui on bilateral upper and lower extremities with some scant drainage noted. HEAD: Atraumatic. Normocephalic. EYES: Pupils equal and round. No scleral icterus. No injection or drainage. ENT: No nasal bleeding or discharge. Mucous membranes pink and moist. NECK: Trachea midline. CARDIOVASCULAR: Regular rate and rhythm. 1/6 systolic ejection murmur. RESPIRATORY: No accessory muscle use. Clear to auscultation. Breath sounds equal bilaterally. GASTROINTESTINAL: Abdomen soft, non-tender, nondistended. Hepatic and splenic margins not palpable. MUSCULOSKELETAL: Extremities without clubbing, cyanosis, or edema. No obvious deformities. NEUROLOGICAL: Awake and alert. No obvious cranial nerve deficits. Motor grossly within normal limits. Able to move all extremities spontaneously. Normal speech. PSYCHIATRIC: Calm and cooperative. Judgement and insight fair. Assessment and Plan - Plan 42-year-old male with a history of IV drug use, cellulitis in all 4 extremities and suicidal ideation admitted to inpatient psychiatry: Adjustment disorder with suicidal ideations and depressed mood Patient suffered recent of his mother and 17yr old child -Management per psychiatric team Cellulitis x4 extremities patient is afebrile, VSS Bilateral legs are worse than arms US of the extremities with no drainable fluid collection treated with IV Vanco and Zosyn. blood cultures with no growth x 5 days -Continue on po Doxycycline and Keflex -monitor Polysubstance abuse IV drug use with narcotics Xanax abuse UDS positive for cocaine and opiates -per primary team, Baclofen, Clonidine, Zofran, Imodium and analgesic prn for GABAergic withdrawal -seizure precautions DVT prophylaxis -patient is ambulatory Thank you for allowing us the opportunity to assist in the care of your patient. We will continue to follow along with you. Code Status: Full Discussed Condition With: patient, nursing staff, Dr. Llamas
--- NOTE | 2018-05-08 17:38 | ECG ---
Date Performed: 05/08/2018 Time Performed: 13:32:15 PTAGE: 42 years EKG: Sinus rhythm NORMAL ECG NO PREVIOUS TRACING DOCTOR: Sean Joyce Interpretating Date/Time 05/08/2018 17:36:47
[2018-05-08] MEDS: traZODone 50 MG Tablet PO SCH (21:09)
[2018-05-09] MEDS: LORazepam 1 MG Tablet PO PRN ×4 (08:11→21:11)
[2018-05-09] MEDS: Multivitamin/Minerals Therapeutic Tablet PO SCH (08:11)
[2018-05-09] MEDS: Loperamide 2 MG Capsule PO PRN ×2 (08:11→16:07)
[2018-05-09] MEDS: Baclofen 10 MG Tablet PO SCH ×3 (08:11→17:33)
[2018-05-09] MEDS: Ibuprofen 600 MG Tablet PO PRN ×2 (08:12→16:06)
[2018-05-09] MEDS: Folic Acid 1 MG Tablet PO SCH (08:12)
--- NOTE | 2018-05-09 10:58 | P.DSPSY ---
Psychiatry Discharge Summary Advance Directives: No - Admission Admission Date: May 07, 2018 12:00 Brief History: Mr. Sorenson is a 42 year-old male with a reported history of PTSD who presents in transfer from the medical floor. He is presently admitted on a voluntary basis and has completed a right of release set to this afternoon. Reviewing the records from the medical floor, I note that the patient was admitted with cellulitis of his extremities related to his history of IVDU and reported that he had made a suicidal overdose on heroin and cocaine prior to admission. He was seen in psychiatric consultation by Dr. Miles, who recommended psychiatric admission once medically stabilized. Reviewing the electronic medical record, I see no previous psychiatric contact within our system. Patient seen and examined with nurse. Chart reviewed. Case discussed with nursing staff. On my examination today, patient presents as somewhat irritable and dysphoric. Antisocial personality traits are noted, although it is not clear to what degree these reflect underlying personality style or reflect a manifestation of his current distress. He continues to say that presenting overdose was suicidal in nature and cites recent loss of mother and son in MVA as significant stressors. He does admit to feeling depressed still but adamantly denies any suicidal ideation, intent or plan at this time. He says that he is "tired of the lifestyle" of substance use and wants to get clean. He is agreeable to going from this facility directly to a chem dep treatment program if this can be arranged. However, he is insistent that he will derive no benefit from hospitalization on the general psychiatric unit, and so he hopes to make his stay here as brief as possible. He is willing to rescind the right of release to facilitate placement in chem dep program. He has no hypomanic or manic symptoms. He denies any audiovisual hallucinations. I can elicit no delusional material. He does report a history of PTSD and says that he is troubled by nightmares from time to time, but he describes no other symptoms related to PTSD. The remainder of the psychiatric ROS is negative. Patient does complain of some opiate withdrawal symptoms including some myalgias. No other physical complaints. Past psychiatric history: Patient reports a history of substance use issues. He also reports a history of PTSD. He denies any history of inpatient or outpatient psychiatric treatment. He denies any history of suicide attempts. Family history: The patient reports that his son had bipolar disorder. He denies any family history of suicide. He reports an extensive family history of substance use issues, mostly alcohol. Chemical dependency history: The patient reports that he has been using heroin, approximately 2 g a day. He also has a history of abuse of Suboxone in the past. He has also been selling opiates by his report. He also has been abusing cocaine and has used benzodiazepines in the past. His longest sober time is 2 months, which he achieved without clinical assistance by his report. Social history: The patient is from his , noting that she left him when he began using substances. His son recently in a motor vehicle accident as noted above. He is estranged from his daughter. He has some college education. He is disabled. He served in the [employer] for 8 years and saw combat in [place]. He does have a history of having been briefly jailed in the past but denies any other legal history. When asked if he has access to firearms, patient replies that he does "of course" have access as a consequence of his participation in the drug trade. He is somewhat evasive on specifics. He denies ever having had a suicide plan involving a firearm, noting that he is averse to any sort of pain. He is a Yarsanism. Tobacco Use In Past 30 Days: Yes How Often Do You Have a Drink Containing Alcohol: Never Mental Status Examination Appearance: Appropriate Consciousness: Alert Orientation: x4 Motor Activity: Normal gait Speech: Unremarkable Language: Adequate Fund of Knowledge: Adequate Attention and Concentration: Adequate Memory: Unremarkable (Grossly intact on clinical exam) Mood: Irritable Affect: Irritable, Other (Dysphoric) Thought Process & Associations: Intact, Logical, Linear Thought Content: Appropriate Hallucination Type: None Delusion Type: None Suicidal Ideation: No Suicidal Plan: No Suicidal Intention: No Homicidal Ideation: No Homicidal Plan: No Homicidal Intention: No Insight: Fair Judgment: Impulsive Discharge/Advance Care Plan - Results Vital Signs: Last Vital Signs Temp 98.2 F 05/09/18 05:16 Pulse 70 05/09/18 05:16 Resp 16 05/09/18 05:16 BP 105/55 L 05/09/18 05:16 Pulse Ox 95 05/09/18 05:16 Lab Results: Abnormal Lab Results 05/08/18 10:30 Sodium 142 Potassium 4.6 Chloride 109 H Carbon Dioxide 25.8 Anion Gap 7 BUN 7 Creatinine 0.75 Estimated GFR Greater than 89 Random Glucose 69 L Calcium 9.1 Triglycerides 184 H Cholesterol 148 LDL Cholesterol, Calc 75 HDL Cholesterol 36.7 L Cholesterol/HDL Ratio 4.03 Laboratory Results Triglycerides 184 mg/dL (42-150) H 05/08/18 10:30 Cholesterol 148 mg/dL (120-200) 05/08/18 10:30 LDL Cholesterol, Calc 75 mg/dL (0-99) 05/08/18 10:30 HDL Cholesterol 36.7 mg/dL (40.0-60.0) L 05/08/18 10:30 - Discharge Care Plan Goals to Promote Your Health: * To prevent worsening of your condition and complications * To maintain your health at the optimal level Directions to Meet Your Goals: Take your medications as prescribed Follow your dietary instruction Follow activity as directed Keep your appointments as scheduled Take your immunizations and boosters as scheduled If your symptoms worsen call your PCP, if no PCP go to Urgent Care Center or Emergency Room For 22/01 questions related to your inpatient stay or results of tests pending at discharge, please contact Dr. Frederick Villarreal MD at [phone] Smoking is Dangerous to Your Health. Avoid second hand smoking
--- NOTE | 2018-05-09 12:21 | P.PNPSY ---
Subjective Chief Complaint: Suicide attempt Remarks: Patient seen and examined with nurse. Chart reviewed. CIWA max overnight was 9. Case discussed with nursing staff who reports patient reported improved withdrawal symptoms. He has reportedly been taking adequate food and fluid. Case discussed with counselor who has liaisoned with [facility]. According to counselor , the most the [facility] can offer this patient is an evaluation by PCP today with referral for ambulatory chem dep eval tomorrow. There is a possibility, but no assurance, that patient would then be referred for more intense chem dep treatment based on that eval. On my exam, patient is in his room. Affect remains dysphoric. Mood is "the same." He denies SI/HI. No psychotic material. No side effects from meds. Complains of ongoing subjective withdrawal symptoms and says he has had 3 loose stools today in the setting of opiate withdrawal. On my exam, the patient has no stigmata of opiate or GABAergic withdrawal. He has no hand tremor, no diaphoresis, no mydriasis, no tongue fasciculations. He has no piloerection, no lacrimation/rhinorrhea or other signs of opiate withdrawal. Vital Signs Temp Pulse Resp BP Pulse Ox 05/09/18 05:16 98.2 F 70 16 105/55 L 95 05/08/18 19:00 98 F 70 18 128/68 98 Intake and Output 05/08/18 05/09/18 05/09/18 22:59 06:59 14:59 Intake Total 240 / 240 Balance 240 / 240 Intake: Oral 240 / 240 Other: Weight 71.4 kg Labs reviewed. No new labs. Review of Systems All other systems reviewed negative except as stated in HPI Mental Status Examination Appearance: Appropriate Consciousness: Alert Orientation: x4 Motor Activity: Other (No motor abnormalities noted) Speech: Unremarkable Language: Adequate Fund of Knowledge: Adequate Attention and Concentration: Adequate Memory: Unremarkable (Grossly intact on clinical exam) Mood: Other ("The same") Affect: Other (Dysphoric) Thought Process & Associations: Intact, Logical, Linear Thought Content: Appropriate Hallucination Type: None Delusion Type: None Suicidal Ideation: No Suicidal Plan: No Suicidal Intention: No Homicidal Ideation: No Homicidal Plan: No Homicidal Intention: No Insight: Fair Judgment: Impulsive Assessment and Plan - Assessment (1) Adjustment disorder with mixed disturbance of emotions and conduct Code(s): F43.25 - Adjustment disorder with mixed disturbance of emotions and conduct Status: Acute (2) Polysubstance dependence Code(s): F19.20 - Other psychoactive substance dependence, uncomplicated Status: Acute - Plan Plan: Titrate Baclofen to 20mg TID for management of subjective complaints of opiate withdrawal and continue symptomatic management otherwise. Given that the patient is complaining of loose stools but is not having much in the way of objective signs of opiate withdrawal and given that he has recently been medically hospitalized I will check a C. difficile PCR out of an abundance of caution. Check BMP in the morning to ensure that patient is not experiencing any electrolyte abnormalities in the setting of reported loose stools. Continue CIWA scale with Ativan for the management of any GABAergic withdrawal. Continue Paxil as ordered. Continue to monitor on the inpatient unit. Continue other medications and care as ordered. Justification for Continued Inpatient Stay: High risk for decompensation in less restrictive environment. Discharge Planning: [facility] seems inadequate to meet patient's current needs. I suspect that the patient would be at high risk for relapse to substance use if discharged today with plan for chem dep eval tomorrow. This is especially likely as counselor informs me that patient resides with someone who abuses substances. I have therefore instructed counselor to see if an alternate, more satisfactory discharge plan can be arranged, perhaps to sober living or non-[facility] chem dep program. Request Healthcare Surrogate/Guardian Advocate?: No
--- NOTE | 2018-05-09 16:38 | P.PNIM ---
Subjective Interval history: Follow-up visit cellulitis secondary to IVDA, polysubstance abuse, Xanax abuse. Patient seen and examined today. Reports he is doing well. States he has diarrhea today x2. Denies any fevers, chills. States he has no appetite. Denies SOB/ dyspnea. Denies chest pain, palpitations, headaches, dizziness. Denies nausea, vomiting. Physical Exam Vital signs: Vital Signs 05/08/18 19:00 05/09/18 05:16 Temperature 98 F 98.2 F Pulse Rate 70 70 Respiratory Rate 18 16 Blood Pressure 128/68 105/55 L Pulse Oximetry 98 95 Intake & Output 05/08/18 05/09/18 05/09/18 18:59 06:59 18:59 Intake Total 720 / 720 Balance 720 / 720 Weight 71.4 kg Intake: Oral 720 / 720 Narrative: GENERAL: This is a well-nourished, well-developed patient, in no apparent distress. SKIN: Warm and dry. +areas of cellulitic track bui on bilateral upper and lower extremities no drainage noted. HEENT: Normocephalic. Pupils equal round and reactive. Nose without bleeding. Airway patent. NECK: Trachea midline. CARDIOVASCULAR: Regular rate and rhythm without murmurs, gallops, or rubs. RESPIRATORY: Clear to auscultation. Breath sounds equal bilaterally. No wheezes , rales, or rhonchi. GASTROINTESTINAL: Abdomen soft, non-tender, nondistended. Bowel Sounds normoactive x4. MUSCULOSKELETAL: Extremities without clubbing, cyanosis, or edema. NEUROLOGICAL: Awake and alert. Oriented to time, place, person. No focal neuro deficit. Moves all extremities. Normal speech. Results - Labs CBC & Chem 7: 05/08/18 10:30 Assessment and Plan - Plan 42-year-old male with a history of IV drug use, cellulitis in all 4 extremities and suicidal ideation admitted to inpatient psychiatry: Adjustment disorder with suicidal ideations and depressed mood Patient suffered recent of his mother and 17yr old child -Management per psychiatric team Cellulitis x4 extremities -Afebrile, VSS. Blood cultures with no growth x5 days -Bilateral legs are worse than arms. Improving no drainage noted. Tender to palpate. -US of the extremities with no drainable fluid collection -Treated with IV Vanco and Zosyn. Switched on Doxycycline and Keflex -Rx for DC printed -Continue with antibiotics Polysubstance abuse IV drug use with narcotics Xanax abuse -UDS positive for cocaine and opiates -per primary team, Baclofen, Clonidine, Zofran, Imodium and analgesic prn for GABAergic withdrawal -seizure precautions DVT prophylaxis ambulatory Stable from Hospitalist standpoint. We will sign off. Reconsult as needed. Thank you. Code Status: Full code Discussed Condition With: Patient, nurse Discharge Planning: DC disposition by primary team
[2018-05-09 16:52] LABS: Hemoglobin A1c 5.4 % (4.3-6.0)
[2018-05-09] MEDS: Lactobacillus Acidophilus/L. Spores Tablet PO SCH (21:11)
[2018-05-09] MEDS: traZODone 50 MG Tablet PO SCH (21:11)
[2018-05-10] MEDS: Ibuprofen 600 MG Tablet PO PRN (00:39)
[2018-05-10 05:39] VITALS: BP 119/81; PULSE 77; RESP 18; TEMP 97.9; O2SAT 97
--- NOTE | 2018-05-10 09:06 | P.DSPSY ---
Psychiatry Discharge Summary Inpatient Psychiatric care?: Yes Advance Directives: No Mental Health Advance Directive: No Health Care Proxy: No - Admission Admission Date: May 07, 2018 12:00 - Admission Diagnosis (1) Adjustment disorder with mixed disturbance of emotions and conduct Code(s): F43.25 - Adjustment disorder with mixed disturbance of emotions and conduct (2) Polysubstance dependence Code(s): F19.20 - Other psychoactive substance dependence, uncomplicated Brief History: Mr. Sorenson is a 42 year-old male with a reported history of PTSD who presents in transfer from the medical floor. He is presently admitted on a voluntary basis and has completed a right of release set to this afternoon. Reviewing the records from the medical floor, I note that the patient was admitted with cellulitis of his extremities related to his history of IVDU and reported that he had made a suicidal overdose on heroin and cocaine prior to admission. He was seen in psychiatric consultation by Dr. Miles, who recommended psychiatric admission once medically stabilized. Reviewing the electronic medical record, I see no previous psychiatric contact within our system. Patient seen and examined with nurse. Chart reviewed. Case discussed with nursing staff. On my examination today, patient presents as somewhat irritable and dysphoric. Antisocial personality traits are noted, although it is not clear to what degree these reflect underlying personality style or reflect a manifestation of his current distress. He continues to say that presenting overdose was suicidal in nature and cites recent loss of mother and son in MVA as significant stressors. He does admit to feeling depressed still but adamantly denies any suicidal ideation, intent or plan at this time. He says that he is "tired of the lifestyle" of substance use and wants to get clean. He is agreeable to going from this facility directly to a chem dep treatment program if this can be arranged. However, he is insistent that he will derive no benefit from hospitalization on the general psychiatric unit, and so he hopes to make his stay here as brief as possible. He is willing to rescind the right of release to facilitate placement in chem dep program. He has no hypomanic or manic symptoms. He denies any audiovisual hallucinations. I can elicit no delusional material. He does report a history of PTSD and says that he is troubled by nightmares from time to time, but he describes no other symptoms related to PTSD. The remainder of the psychiatric ROS is negative. Patient does complain of some opiate withdrawal symptoms including some myalgias. No other physical complaints. Tobacco Use In Past 30 Days: Yes How Often Do You Have a Drink Containing Alcohol: Never Hospital Course: Patient was admitted to a locked, inpatient psychiatric unit. A general medical consultation was obtained. Appropriate precautions were in place throughout patient's hospital stay. Patient was seen and examined on the unit by psychiatry and also visited by counselor. Psychotropic medications were adjusted. Patient tolerated medication changes well without side effects. Patient's opiate withdrawal was symptomatically managed, and he was placed on a CIWA scale with Ativan for the management of any GABAergic withdrawal. There was no evidence of any suicidality or homicidality on the inpatient unit. There was no evidence of self-care deficit. Working with the patient, counselor has arranged for patient to follow-up at the [facility] today and then enter sober living at [facility] the [facility]. On the day of discharge: Patient seen and examined with counselor. Chart reviewed. Case discussed with nursing staff. No behavioral issues noted overnight. Case discussed in treatment team. Counselor explains that patient will need a clean urine toxicology panel to be accepted into a sober living. I have obtained a U tox today, and this is now negative. BMP reveals only mildly decreased GFR. On my examination today, the patient verbalizes readiness to leave the hospital and go to sober living. He denies any suicidal or homicidal ideation, intent or plan. Mood is improved versus admission, and I can elicit no severe depressive or hypomanic/manic symptoms. He tells me "I haven't felt this good in weeks." He has no audiovisual hallucinations, and I can elicit no delusional material. He denies side effects from medications. I did offer to discharge the patient with medications for symptomatic management of opiate withdrawal such as baclofen, clonidine, etc., but the patient has declined saying that he would like to try to do without. He has no physical complaints at this time. He is no longer having loose stools, and so C. difficile PCR is not indicated. Suicide and violence risk assessment on day of discharge both suggest lower imminent risk from mental illness as defined under the [place] act, and the patient's level of function is adequate for outpatient care. Patient has no acute risk factors: No current suicidal or homicidal ideation, no severe depressive illness, no impairment in reality construction, no current substance intoxication. We will endeavor to reduce patient's risk still further by having him enter into a sober living environment. Patient has maximized benefit from this inpatient psychiatric hospital stay. He will be discharged today with psychiatric follow-up as arranged by counselor. Patient is also to follow-up with primary care. I have supported the patient in his desire for abstinence from substances. I have counseled the patient to return to the psychiatric emergency room for any concerning symptoms as part of a general safety plan. - Discharge Discharge Date: 05/10/18 - Discharge Diagnosis (1) Adjustment disorder with mixed disturbance of emotions and conduct Diagnosis: Principal Code(s): F43.25 - Adjustment disorder with mixed disturbance of emotions and conduct Status: Resolved (2) Polysubstance dependence Diagnosis: Secondary Code(s): F19.20 - Other psychoactive substance dependence, uncomplicated Status: Chronic Discharge Disposition: Sober living - Discharge Instructions Discharge Diet: Regular Diet Activities You Can Perform: Weight Bearing As Tolerat - Discharge Time > 30 minutes Mental Status Examination Appearance: Appropriate Consciousness: Alert Orientation: x4 Motor Activity: Other (No abnormal motor movements noted. No stigmata of opiate or GABAergic withdrawal noted.) Speech: Unremarkable Language: Adequate Fund of Knowledge: Adequate Attention and Concentration: Adequate Memory: Unremarkable (Remains grossly intact on clinical exam) Mood: Appropriate Affect: Appropriate Thought Process & Associations: Intact, Logical, Goal directed, Linear Thought Content: Appropriate Hallucination Type: None Delusion Type: None Suicidal Ideation: No Suicidal Plan: No Suicidal Intention: No Homicidal Ideation: No Homicidal Plan: No Homicidal Intention: No Mental Status Exam Remarks: Insight and judgment are fair Discharge/Advance Care Plan - Results Vital Signs: Last Vital Signs Temp 97.9 F 05/10/18 05:38 Pulse 77 05/10/18 05:38 Resp 18 05/10/18 05:38 BP 119/81 05/10/18 05:38 Pulse Ox 97 05/10/18 05:38 Lab Results: Abnormal Lab Results 05/08/18 20:30 Hemoglobin A1c 5.4 Laboratory Results Hemoglobin A1c 5.4 % (4.3-6.0) 05/08/18 20:30 Triglycerides 184 mg/dL (42-150) H 05/08/18 10:30 Cholesterol 148 mg/dL (120-200) 05/08/18 10:30 LDL Cholesterol, Calc 75 mg/dL (0-99) 05/08/18 10:30 HDL Cholesterol 36.7 mg/dL (40.0-60.0) L 05/08/18 10:30 Summary of Procedures: None done. Pending Results: None - Medications Number of antipsychotic medications at discharge: 0 - Discharge Care Plan Goals to Promote Your Health: * To prevent worsening of your condition and complications * To maintain your health at the optimal level Directions to Meet Your Goals: Take your medications as prescribed Follow your dietary instruction Follow activity as directed Keep your appointments as scheduled Take your immunizations and boosters as scheduled If your symptoms worsen call your PCP, if no PCP go to Urgent Care Center or Emergency Room For 22/01 questions related to your inpatient stay or results of tests pending at discharge, please contact Dr. Frederick Villarreal MD at [phone] Smoking is Dangerous to Your Health. Avoid second hand smoking
[2018-05-10 09:27] LABS: Calcium 9.5 mg/dL (8.5-10.1); Carbon Dioxide 24.8 meq/L (21.0-32.0); Potassium 4.5 meq/L (3.5-5.1)
[2018-05-10] MEDS: Baclofen 10 MG Tablet PO SCH ×2 (09:31→13:08)
[2018-05-10] MEDS: Folic Acid 1 MG Tablet PO SCH (09:34)
[2018-05-10] MEDS: Multivitamin/Minerals Therapeutic Tablet PO SCH (09:34)
[2018-05-10] MEDS: Lactobacillus Acidophilus/L. Spores Tablet PO SCH (09:34)
[2018-05-10 11:07] LABS: Amphetamine Screen,Urine Neg (Neg); Barbiturate Screen,Urine Neg (Neg); Cannabinoid Screen,Urine Neg (Neg); Cocaine Screen,Urine Neg (Neg)
[2018-05-10 11:12] LABS: Opiate Screen,Urine Neg (Neg)
--- NOTE | 2018-05-10 15:40 | P.TTN ---
- Patient Problems Problems: 1. Discharge planning 2. Medication compliance 3. Knowledge deficit 4. Lack of coping skills - Progress Toward Goals Psychiatric Counselors Present: Compa Pang Jr., RUPALI (05/10- Pt. will be discharged to the [facility] then go to [facility]) - Documentation Teaching Recipient: Patient
== END 2018-05-10 16:25 | disposition home or self-care (01) ==
LOC: H260 12:05
PROVIDERS: ADMIT Psychiatry & Neurology Psychiatry; ATTEND Psychiatry & Neurology Psychiatry